=== PATIENT | female | born 1990 | race Caucasian/White ===

== ENCOUNTER 2018-10-15 21:46 | Inpatient (IN) | payer MEDICAID ==
[2018-10-15] MEDS ORDERED: OLANZapine 5 MG TAB PO ONE (22:03)
--- NOTE | 2018-10-15 22:03 | EDPHY ---
H & P Stated Complaint: Hearing voices, increasing paranoia, MH check, Source: Patient - Personal History LMP (Females 10-55): Irregular Current Tetanus Diphtheria and Acellular Pertussis (TDAP): No - Medical/Surgical History Hx Asthma: No Hx Chronic Respiratory Disease: No Hx Diabetes: No Hx Cardiac Disease: No Hx Renal Disease: No Hx Cirrhosis: No Hx Alcoholism: No Hx HIV/AIDS: No Hx Splenectomy or Spleen Trauma: No Other PMH: Depression, ADD, PTSD - Social History Smoking Status: Heavy smoker Time Seen by Provider: 10/15/18 22:03 HPI/ROS: HPI CHIEF COMPLAINT: Paranoia HISTORY OF PRESENT ILLNESS: Patient is a 28-year-old female she has a history of PTSD, major depressive disorder, attention deficit hyperactivity disorder, presents emergency room stating that she is feeling very paranoid she reports to me she just recently moved and her neighbors are talking about her already. She reports she had moved from her residence in [place] after her neighbors were constantly talking about her. She states she could hear them talking through the robbins. She arrives to the emergency room calm and cooperative. Boyfriend dropped her off. She does states she feels paranoid she believes her neighbors are talking about her. Past Medical History: History of PTSD, major depressive disorder, attention deficit hyperactivity disorder Past Surgical History: No recent surgical history Social History: Current use of tobacco, denies illicit drugs or alcohol. Family History: Noncontributory ROS REVIEW OF SYSTEMS: 10 Systems were reviewed and negative with the exception of the elements mentioned in the history of present illness. Exam Constitutional triage nursing summary reviewed, vital signs reviewed, awake/ alert. Eyes normal conjunctivae and sclera, EOMI, PERRLA. HENT normal inspection, atraumatic, moist mucus membranes, no epistaxis, neck supple/ no meningismus, no raccoon eyes. Respiratory clear to auscultation bilaterally, normal breath sounds, no respiratory distress, no wheezing. Cardiovascular rate normal, regular rhythm, no murmur, no edema, distal pulses normal. Gastrointestinal soft, non-tender, no rebound, no guarding, normal bowel sounds, no distension, no pulsatile mass. Genitourinary no CVA tenderness. Musculoskeletal no midline vertebral tenderness, full range of motion, no calf swelling, no tenderness of extremities, no meningismus, good pulses, neurovascularly intact. Skin pink, warm, & dry, no rash, skin atraumatic. Neurologic awake, alert and oriented x 3, AAOx3, moves all 4 extremities equally, motor intact, sensory intact, CN II-XII intact, normal cerebellar, normal vision, normal speech. Psychiatric paranoid Heme/Lymph/Immune no lymphadenopathy. Differential Diagnosis: Includes but is not limited to in a particular order underlying mood disorder, bipolar disorder, psychosis, schizophrenia, paranoia, drug intoxication Medical Decision Making: Plan for this patient Zyprexa 10 mg p.o., basic labs, will need medical clearance and then mental health evaluation. Re-evaluation: 2257: patient placed on m1 hold by myself. Patient has been seen evaluated by mental health. Plan for inpatient psychiatric hospitalization due to paranoia 0700AM: Patient signed over to Dr. Jaramillo. Plan for psychiatric admission. ( Rohit Alexandra) Constitutional: Initial Vital Signs Temperature (C) 36.8 C 10/15/18 21:47 Heart Rate 96 10/15/18 21:47 Respiratory Rate 17 10/15/18 21:47 Blood Pressure 125/79 H 10/15/18 21:47 O2 Sat (%) 99 10/15/18 21:47 O2 Delivery Mode Room Air Allergies/Adverse Reactions: No Known Allergies Allergy (Unverified 10/15/18 21:52) Home Medications: Medication Instructions Recorded Abilify 10/15/18 Adderall Xr 10 mg Capsule 10/15/18 CLONAZEPAM 10/15/18 Cymbalta 10/15/18 Remeron 10/15/18 Medical Decision Making ED Course/Re-evaluation: 7:00 a.m.-I assumed care of this patient at shift change. She presents with paranoia and is on an M1 hold. She has been seen by mental health and they are looking for inpatient mental health placement. 11:00 a.m.-[facility]ed [facility] by Dr. Payne. EMTALA completed. (Kely Jaramillo) Differential Diagnosis: Differential diagnosis includes though it is not limited to suicidal ideation, overdose, acute psychosis, self-injury, alcohol withdrawal. (Kely Jaramillo) - Data Points Laboratory Results: Laboratory Results 10/15/18 22:37 10/15/18 22:37 10/15/18 22:37 Beta HCG, Qual NEGATIVE Medications Given: Discontinued Medications Olanzapine (Olanzapine) 10 mg PO ONCE ONE Stop: 10/15/18 22:04 Last Admin: 10/15/18 22:29 Dose: 10 mg Departure - Departure Disposition: [facility] IP Clinical Impression: Acute psychosis Condition: Fair Referrals: NONE *PRIMARY CARE P,. [Primary Care Provider] - As per Instructions
[2018-10-15 22:55] LABS: PLATELET COUNT 234 10^3/uL (150-400)
--- NOTE | 2018-10-16 00:28 | ASMTTCLDSP ---
TLC Discharge Disposition Disposition: Answers: Admit Disposition Notes: Notes: In consultation with [facility] ED Physician Rohit Alexandra MD, , PA and on-call Psychiatrist, Soila Payne all concurred that pt appears to meet 27-65 criteria requiring psychiatric hospitalization as pt appears to be at risk of harm to self/gravely disabled due to a mental illness condition. Pt was read the Patient Rights and Responsibilities Statement on 10/16/18 at 12:05am, original placed on chart, and was given photocopy of Rights. Pt (signed the Patient Rights. Pt was given the 3N prohibited belongings list while in the ED. Discharge Concerns/Recommendations: Notes: Pt, bf and therapist agree to inpt admission benefit. Was patient given the Answers: Yes Inpatient Behavioral Health Prohibited Belongings List while in the ED? For inpatient Soila Payne MD admission, the following psychiatrist agreed to accept patient for admission to Behavioral Health ([facility]): Type of Hold: Answers: M1/72-hour Hold Hold initiated by: Answers: ED Physician Date Signed: 10/16/2018 12:27 AM Electronically Signed By:Lexis Perez
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
[2018-10-16] MEDS ORDERED: NICOTINE 21 MG/24 HR PATCH TD ONE (11:07)
[2018-10-16] MEDS ORDERED: LORazepam 0.5 MG TAB PO PRN (12:52)
[2018-10-16] MEDS ORDERED: MAGNESIUM HYDROXIDE 30 ML UDCUP PO PRN (12:52)
[2018-10-16] MEDS ORDERED: MAG HYDROX/AL HYDROX/SIMETH 30 ML UDCUP PO PRN (12:52)
[2018-10-16] MEDS ORDERED: ACETAMINOPHEN 325 MG TAB PO PRN (12:52)
[2018-10-16] MEDS ORDERED: NICOTINE POLACRILEX 2 MG GUM B PRN (12:52)
[2018-10-16] MEDS ORDERED: clonazePAM 0.5 MG TAB PO PRN (14:38)
[2018-10-16] MEDS ORDERED: clonazePAM 0.5 MG TAB PO SCH (14:45)
[2018-10-16] MEDS: clonazePAM 0.5 MG TAB PO SCH ×2 (16:13→20:10)
[2018-10-16] MEDS: NICOTINE 21 MG/24 HR PATCH TD SCH (18:17)
[2018-10-16] MEDS ORDERED: MIRTAZAPINE 30 MG TAB PO SCH (21:00)
[2018-10-16] MEDS ORDERED: DULoxetine 60 MG CAP PO SCH (21:00)
[2018-10-17] MEDS: clonazePAM 0.5 MG TAB PO SCH ×4 (06:16→19:22)
[2018-10-17] MEDS: NICOTINE 21 MG/24 HR PATCH TD SCH (08:54)
[2018-10-17] MEDS: DULoxetine 60 MG CAP PO SCH (08:54)
[2018-10-17] MEDS ORDERED: ARIPiprazole 2 MG TAB PO SCH (09:00)
[2018-10-17] MEDS ORDERED: PNEUMOCOCCAL 0.5ML VACCINE VIAL (PNEUMOVAX 23) IM ONE (11:59)
--- NOTE | 2018-10-17 12:25 | BAPA ---
[f rep st] ADMISSION PSYCHIATRIC ASSESSMENT DATE OF SERVICE: 10/17/2018 CHIEF COMPLAINT: "I'm here because my therapist wanted me to come here because I cannot get anything done because someone that lives above me is always, always insulting me." HISTORY OF PRESENT ILLNESS: From the ED note dated 10/15/2018, the patient presented to the emergency department stating she felt very paranoid, reported to the manpower development advisor she felt that when she recently moved, that her neighbors were talking about her. The patient reports that the residence she moved from in [place], neighbors were also talking about her. The patient reported she could hear the neighbors talking through the robbins. The patient was calm and cooperative in the emergency room and she was dropped off at the emergency room by her boyfriend. The patient's chief complaint in the emergency room is she felt paranoid and believed her neighbors were talking about her. From the [facility] evaluation dated 10/15/2018, the patient was placed on a 72-hour M1 hold with start date and time of 10/15/2018, at 10:33 p.m. The patient reported to the [facility] manpower development advisor "the reason I am here is we moved into an apartment. It has been about 2 weeks. I heard my neighbor talking. I felt the neighbors were talking about me. This was happening at our last apartment too, which is why we moved out and broke our lease, which was very expensive. My boyfriend doesn't believe me, but I know it is happening." The patient reportedly has a history of PTSD, major depression and attention deficit hyperactivity disorder. The patient reports to this HYDROELECTRIC PLANT ELECTRICAL ENGINEER that the neighbor above her is talking to people about her and starting rumors that she is growing or selling hard drugs. The patient reports she can hear the neighbor saying things about her, such as "gross, she doesn't know how to take care of her hygiene." The patient reports an extreme amount of stress due to being insulted and watched by her neighbors, being watched by people walking by on the dog path next to her apartment and then texting about her. The patient describes this experience as the "Cornelio Show," and reports her boyfriend does not believe her. The patient reports no use of alcohol or other substances that may have contributed to current hospitalizations. The patient describes no psychiatric symptoms at this time and reports that her medications, including doses, are where she wants them and reports good response from current medications. The patient describes history of depression including depressed mood most days all day, isolating, poor appetite, hypersomnia, fatigue, feelings of worthlessness, indecisiveness early every day, and history of suicidal ideation. The patient describes history of anxiety symptoms, including excessive worry. Reports she finds it difficult to control her worry and is easily keyed up, on edge, restless, has difficulty concentrating, her mind going blank, is irritable, muscle tension and sleep disturbance. The patient denies other psychiatric symptoms, including symptoms of karen, attention deficit hyperactivity disorder, OCD, psychosis, and any other symptom of a psychiatric disorder. PAST PSYCHIATRIC HISTORY: The patient reports history of being diagnosed with major depression, ADD, and PTSD. The patient reports she has also been diagnosed in the past with borderline personality disorder. The patient reports a history of one prior suicide attempt approximately 1 year ago, when she cut her wrist and put a plastic bag over her head. The patient reports the suicide attempt was aborted. The patient reports a history of cutting and reports a history of chronic ongoing suicidal thoughts. The patient denies any current intent or plan. The patient reports a history of being hospitalized at [facility] about 1 year ago. The patient reports she was hospitalized for withdrawal from alcohol. [facility] evaluation reports the patient was hospitalized at [facility] 1 year ago following a suicide attempt. The patient denies this report. The patient reports a history of trying numerous psychotropic medications and reports her current medications and doses are working well for her symptoms. The patient currently has a therapist, Amanda Gallegos, and psychiatrist, Dr. Cookie Lawler, from [facility]. The patient reports she plans to see a private psychiatrist in [place], as the commute to her current therapist is too long. The patient reports she is currently seeking a primary care provider. ALLERGIES: No known allergies. CURRENT MEDICATIONS: 1. Tylenol 650 mg p.o. q.4 hours p.r.n. 2. Abilify 2 mg p.o. daily. 3. Klonopin 0.5 mg p.o. four times a daily. 4. Cymbalta 60 mg p.o. daily. 5. Cymbalta 60 mg p.o. daily at 1600. 6. Maalox syrup 30 mL p.o. q.6 hours p.r.n. 7. Milk of magnesia 30 mL p.o. daily p.r.n. 8. Remeron 30 mg p.o. at bedtime. 9. Nicoderm 21 mg transdermal daily. PAST MEDICAL HISTORY: The patient reports a history of endometriosis, history of tubal ligation, history of having her wisdom teeth removed and history of appendectomy. SOCIAL HISTORY: The patient reports she was born in [place], and raised in [place] the majority of her life by both parents. The patient states she currently lives in [place], [place] with her boyfriend of 7 years. The patient describes meeting all of her developmental milestones. Reports no history of learning delays or difficulties, and describes her sexual orientation as bisexual. The patient reports she is currently in a relationship with her boyfriend and has been in the relationship for 7 years. The patient reports no history of being and has no children. The patient reports she currently has part-time employment. The patient reports highest level of education as a bachelor's degree. Reports no history of duty. Reports alevism or spiritual practice as Wicca. The patient reports no legal history. SUBSTANCE USE HISTORY: Patient reports she does not use alcohol, is currently trying to "cut back" on cigarette smoking and reports she smokes cigarettes 1-2 a day. The patient reports she currently uses marijuana in edible form and reports she only uses marijuana on the weekends. The patient reports no other substance abuse history. SUBSTANCE ABUSE BRIEF INTERVENTION: Brief intervention regarding the risks of cannabis and nicotine abuse is provided to patient with goal to reduce the risk of harm that could result from the continued use of cannabis and nicotine, with the general aim to investigate the problem, raise awareness of problem, develop a solution with the patient, recommend a specific change or activity, and motivate the patient toward change. Assess substance abuse behavior and give supportive advice about harm reduction, recommend a reduction in hazardous/at- risk consumption patterns, and facilitate referrals for additional specialized treatment with professional healthcare representative. Intermediate goal is for the patient to quit and attend outpatient substance abuse treatment. Intervention focus on intermediate goals to allow for more immediate success in the treatment process to keep the patient motivated. Review following with patient: Cannabis use risks: Short-term use: impaired short-term memory, impaired motor coordination, altered judgement, in high doses paranoia and psychosis. Long-term use addiction, diminished life satisfaction and achievement, symptoms of chronic bronchitis, and increased risk of chronic psychosis disorders if predisposition to such disorders. In withdrawal anger, aggression irritability, anxiety and nervousness, decreased appetite or weight loss, restlessness, and sleep difficulties with strange dreams. Nicotine dependence: lung cancer, other cancers, heart and circulatory system problems, diabetes, eye problems, infertility and impotence, more prone to respiratory infections, weakened senses , teeth and gum disease, premature aging, second hand smoke. Withdrawal symptoms include strong cravings, anxiety, irritability, restlessness, difficulty concentrating, depressed mood, frustration, anger, increased hunger, insomnia, and constipation or diarrhea. OUTPATIENT SUBSTANCE ABUSE TREATMENT: Patient referred to outpatient provider and treatment for continued treatment related to substance abuse. FAMILY PSYCHIATRIC HISTORY: The patient reports family history of mental illness as mother with depression and anxiety, brother with anxiety, family history of suicide as younger sister attempted suicide. The patient reports alcohol abuse on both sides of her family. ADMISSION LABS AND STUDIES: 1. CBC within normal limits. 2. BMP within normal limits. 3. Hemoglobin A1c within normal limits at 5.2. 4. Liver function within normal limits, except alkaline phosphatase is low at 36. 5. Lipid panel within normal limits. 6. Beta HCG qualitative test negative. 7. Toxicology screen is non-negative for amphetamines, the patient reports she takes a stimulant to treat attention deficit hyperactivity disorder; non- negative for benzodiazepines, patient currently has a prescription of Klonopin; and non-negative for THC, the patient reports using THC edibles on the weekends. MENTAL STATUS EXAM: The patient is a well-nourished female looking stated chronological age. Attire is appropriate. Dress is casual. Grooming status is appropriate. Ambulation is independent. Gait is normal and coordinated. Posture is normal and relaxed. Eye contact is appropriate and adequate. Motor activity is appropriate with purposeful, organized, coordinated movements with no involuntary movements noted. Attitude is cooperative and friendly. The patient appears attentive and relates well to this interviewer. Language production is spontaneous. Rate, rhythm and volume are normal. Articulation is clear. The patient reports mood as "anxious" with congruent affect. The patient's thought process is linear and logical with no loose associations, tangential thought, thought blocking, concrete thinking, or any other signs of formal thought disorder. The patient does not report suicidal or homicidal thoughts, ideas, or plans. Patient denies auditory or visual hallucinations. Patient denies delusions. Patient does not appear to be attending to internal stimuli. The patient is oriented to person, place, time, and situation. The patient's attention and concentration are fair. Patient's insight and judgment are poor. There is no evidence of gross cognitive dysfunction at any point during the interview and no evidence of apparent dysfunction in recent or remote memory noted. The patient does not report undesirable side effects from the current medications. DIAGNOSES: Based on the patient's history and current presentation, the patient 's diagnoses are: 1. Major depressive disorder, recurrent, severe, with anxious distress. 2. Posttraumatic stress disorder. 3. Cannabis use disorder, mild. 4. Nicotine dependence. 5. Rule out delusional disorder. 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 The patient requires continued inpatient care because of current psychosis, notably paranoid delusions. The patient presents with problems of ongoing paranoid delusions that have been reported by her boyfriend. Patient denies her thoughts and behavior as paranoid and denies delusions. The patient has a reported psych history of depression, anxiety, PTSD, and reports her current medications treat her symptoms. The patient denies that her thoughts are paranoid. Response to current medications for her paranoid delusions is poor. The patient is a high safety risk due to current paranoid delusions. Protective factors while hospitalized include ongoing safety checks, active involvement in treatment and support from our treatment team. Patient could benefit from inpatient hospitalization for safety, crisis stabilization, and medication evaluation. PLAN: 1. Medications: After reviewing options, risks and benefits with the patient, the patient agrees to continue current medications listed above. No other medication changes at this time as more time is needed to determine ongoing tolerability and efficacy. Plan is to continue to observe patient for response and side effects from medications, and ongoing monitoring and evaluation. 2. Review with patient informed consent and recommendations for psychotropic medication treatment listed below 3. Labs: no additional labs at this time 4. Therapy: continue milieu and group therapy 5. Further investigation including gathering information from patients relatives and review of past case records to inform treatment plan. 6. Safety/Wellness plan and follow-up outpatient appointments to be established prior to discharge. Next steps are for patient to meet with acute care surgeon to plan a safe discharge plan and establish outpatient services for ongoing treatment. 7. Confer with inpatient treatment team regarding treatment plan. 8. Address psychosocial stressors by meeting with professional healthcare representative to establish discharge plan including referrals for outpatient services. 9. Legal status: M1 10. Consider discharge next week if patient is in stable condition, safe, and has a safe discharge plan. 11. Substance abuse interventions: cannabis and nicotine ESTIMATED LENGTH OF STAY: 3-5 days PSYCHOTROPIC MEDICATION TREATMENT INFORMED CONSENT and RECOMMENDATIONS: Review nature of condition, diagnosis, and prognosis. Review nature and purpose of psychotropic medication treatment. Review type of psychotropic medications being ordered. Review risk and benefits of psychotropic medication treatment. Review probable length of time will need to take medications. Review risk and benefits of not undergoing psychotropic medication treatment. Review alternative treatments to psychotropic medications. Review psychotropic medications contraindications, drug-drug interactions, side effects, and importance of reporting any side effects to a psychiatric provider or nurse during inpatient hospitalization, and upon discharge to patients psychiatric outpatient provider, primary care provider, or other health home care associate. Review importance of asking a nurse, psychiatric provider, or primary care provider any questions or problems concerning the psychotropic medications. Verify patient understands the information that has been provided, and understands, accepts, and agrees to psychotropic medications. Review patients safety plan and importance of patient to communicate to staff while hospitalized if patient is ever a danger to self/others, or unable to care for self, and upon discharge, the importance for patient to contact [facility] or [facility], or go to the nearest emergency room, if patient is ever a danger to self/others, or unable to care for self. Recommend that upon discharge patient establish medication management treatment with a psychiatric provider, establishes routine therapy appointments, and follow-up with primary care provider. Verify patient understands and agrees to these recommendations. /[id number]/MODL MTDD
--- NOTE | 2018-10-17 14:01 | GCON ---
[f rep st] CONSULTATION INTERNAL MEDICINE CONSULTATION DATE OF CONSULTATION: 10/17/2018 REFERRING PHYSICIAN: Marko Almonte NP REASON FOR CONSULTATION: Medical opinion regarding stability for inpatient psychiatric hospitalizati on. HISTORY: The patient, a 28-year-old female, who was hearing voices and having increased paranoid beh avior. She was brought to the emergency room by her boyfriend. She was living in [place] but moved to a new apartment because she thought she heard voices, and the neighbors were talking about her. Since arriving to the new apartment, she thinks the new neighbors are also talking about her, and she is getting increasingly more paranoid. She tells me, since arrival to the behavioral health unit, s he has not heard any voices; therefore, she believes the voices from the neighbor she was hearing in her apartment were real. From the medical standpoint, she recently got over a sinus infection but feels she is on the mend. S he was taking minocycline for acne but ran out of her prescription and would like that to be refilled . She has a history of endometriosis and takes oral contraceptives, which she needs to resume. She has had ADHD and has been on Adderall for 10 years, which they are not allowing her to have here in [facility], which she is unhappy about. PAST MEDICAL HISTORY: 1. Endometriosis. 2. Acne. 3. Posttraumatic stress disorder and depression. 4. ADHD. PAST SURGICAL HISTORY: Tubal ligation, tonsillectomy, appendectomy, wisdom teeth. MEDICATIONS: Please see computerized record for full detailed list. ALLERGIES: No known drug allergies. SOCIAL HISTORY: She smokes half a pack per day but she is trying to cut back. She smokes marijuana. She has been a daily marijuana user in the past, but she has also been cutting back on that. She d escribes herself as a recovering alcoholic and does not currently drink anything at all. She lives w ith her boyfriend. She is employed. REVIEW OF SYSTEMS: Complete review of systems obtained. Review of systems negative regarding consti tutional, HEENT, GI, pulmonary, cardiovascular, , hematology, endocrine, psych, except for positive s and negatives as in HPI. FAMILY HISTORY: Reviewed and noncontributory to presenting complaint. PHYSICAL EXAMINATION: GENERAL: Well-developed, well-nourished female, in no acute distress. VITAL SIGNS: Temperature 36.5, pulse 81, blood pressure 125/65, saturating 99% on room air. EYES: Normal conjunctivae. Pupils equal, round, reactive to light. ENT: Normal ears and nose. Hearing intact. Normal teeth. Oropharynx moist. NECK: Trachea midline. No thyromegaly. CHEST: Normal effort. LUNGS: Clear to auscultation bilaterally. CARDIOVASCULAR: Regular rate and rhythm with no murmur an d no lower extremity edema. ABDOMEN: Soft, nontender. No hepatosplenomegaly. SKIN: Warm, dry, in tact without rash. MUSCULOSKELETAL: No cyanosis or clubbing. Strength is 5/5 upper and lower extre mities. NEUROLOGIC: Cranial nerves intact. Normal sensation to light touch. PSYCH ASSESSMENT: Al ert and oriented x3. Normal affect. Normal judgment. Normal memory. LABORATORY DATA: White count 7.68, hematocrit 39.1, platelets 234. Sodium 135, potassium 4.1, chlor loretta 100, bicarb 29, BUN 11, creatinine 0.7, glucose 82. Hemoglobin A1c is 5.2. LFTs are negative. LDL of 86. ASSESSMENT/PLAN: 1. Paranoia and hearing voices. Management per Psychiatry. 2. Endometriosis. I will resume her oral contraceptives. It is okay for her to take her pills from home, which she has in her possession. 3. Tobacco dependence. She is on a nicotine patch. 4. Attention deficit hyperactivity disorder. Her Adderall is being held under the direction of the psychiatric team. 5. Acne. I recommended she establish care with a new primary care doctor and/or medical assisting program director to ge t this prescribed as an outpatient, but I would not start minocycline during this psychiatric stay. Thank you very much for this consultation. Please re-consult Hospitalist Medicine anything further c pallavi up. /[id number]/MODL
--- NOTE | 2018-10-17 14:37 | ASMTBHMTP ---
Master Treatment Plan Master Treatment Plan Answers: Impaired Reality for: Date: 10/17/2018 Diagnosis on Admission: Major Depressive Disorder, recurrent, with psychotic features 296.34 (F33.3) Expected length of stay: 3-5 Reason for admission: Notes: The patient reported that she has been living in an apartment in [place], [place]. She vacated this apartment and moved to another complex in [place], [place] with her boyfriend due to hearing neighbors "complain" about her. The patient reported that they complain about her "smoking cigarettes" and generally "bitch" about her "spreading gossip" to other neighbors. The patient stated, "We can't relate to each other. The difference is, they have friends and I don't. They say I am gross, a threat to children, and a public health concern. My hearing is sharp." The patient reported that she learned of a "neighborhood watch group that consists of over 1,000 members;" this group discusses the patient as well. She stated, "They have the wrong idea about who I am." The patient reported that her boyfriend and therapist recommended she come here to learn whether she was "imagining" the experience. The patient recently began wearing noise canceling headphones without success. Patient's stated presenting problems: Notes: The patient reported that she was recently at dinner in [place] with peers from [employer] and heard voices stating "Why is she with them? I thought we got rid of her. We shouldn't have to deal with her." The patient also recalled being followed on multiple occasions and seeing the "same vehicles and license plates." The patient is in remission from etoh abuse; relapsed one year ago. The patient currently uses thc; frequency, duration, intensity unknown. The patient reported decreased use. Patient's goals for treatment: Notes: The patient stated, "I needed a break. 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 Discharge criteria: Notes: Psychotic symptoms will be reduced or eliminated with return to baseline functioning in affect, thinking, and behavior prior to discharge. Initial disposition plan/considerations: Notes: The patient will return to her apartment, routine, and follow up care. Master Treatment Plan Required Signatures Psychiatrist signature: Answers: DONALD DiazP: RN on-shift signature: Answers: RN: Patient signature: Answers: Patient: Date Signed: 10/17/2018 02:31 PM Electronically Signed By:Catherine Abdi
--- NOTE | 2018-10-17 14:41 | PDMN ---
Medical Necessity Medical necessity: Pt meets IP criteria per IT SECURITY CONSULTING DIRECTOR & [facility] [id number]; est los >2 mn for eval/tx of major depressive disorder, recurrent, severe w/anxious distress; r/o delusional disorder; pt on M1 hold; admit for further monitoring, safety, crisis stabilization & med management; per H&P & order 10/16/18
[2018-10-17] MEDS ORDERED: DULoxetine 60 MG CAP PO SCH (16:00)
[2018-10-17] MEDS: LORYNA PO SCH (19:43)
[2018-10-17] MEDS ORDERED: MIRTAZAPINE 30 MG TAB PO SCH (21:00)
[2018-10-18] MEDS: clonazePAM 0.5 MG TAB PO SCH ×2 (06:23→12:25)
[2018-10-18 06:51] VITALS: BP 114/57
[2018-10-18] MEDS: DULoxetine 60 MG CAP PO SCH (08:47)
[2018-10-18] MEDS: LORYNA PO SCH (08:47)
[2018-10-18] MEDS: NICOTINE 21 MG/24 HR PATCH TD SCH (08:48)
[2018-10-18] MEDS ORDERED: ARIPiprazole 2 MG TAB PO SCH (09:00)
[2018-10-18] MEDS ORDERED: CHOLECALCIFEROL VIT D3 1,000 UNITS TAB PO SCH (09:00)
[2018-10-18] MEDS ORDERED: OMEGA-3 FATTY ACIDS 1,000 MG CAP PO SCH (09:00)
--- NOTE | 2018-10-18 12:53 | BDS ---
[f rep st] BEHAVIORAL HEALTH DISCHARGE SUMMARY REASON FOR ADMISSION: From the ED note dated 10/15/2018, patient with history of PTSD, major depressive disorder presented to the emergency room feeling very paranoid. The patient was admitted involuntarily and on an M1 hold due to being gravely disabled due to a mental illness. Patient was admitted for safety , crisis stabilization, and medication management. ADMITTING DIAGNOSES: 1. Major depressive disorder, recurrent episode, severe, with anxious distress. 2. Posttraumatic stress disorder. 3. Cannabis use disorder, moderate dependence. 4. Nicotine dependence. 5. Cannabis-induced psychotic disorder with delusions, suspected. 6. Delusional disorder, suspected. ADMISSION PHYSICAL EXAM: Patient was seen on 10/17/2018 for history and physical consultation for medical clearance for inpatient psychiatric hospitalization and treatment. Patient was medically cleared for inpatient psychiatric hospitalization and treatment. For further details, please refer to consultation note dated 10/17/2018. ADMISSION LABS: 1. CBC within normal limits. 2. BMP within normal limits. 3. Hemoglobin A1c within normal limits at 5.2. 4. Liver function within normal limits except alkaline phosphatase was low at 36. 5. Lipid panel within normal limits. 6. Beta HCG qualitative test negative. 7. Toxicology screen non-negative for amphetamines, non-negative for benzodiazepines and non-negative for THC. Negative for all other substances that were screen. Negative for ethyl alcohol. MAJOR PROCEDURES OR TESTS: None. HOSPITAL COURSE: The most prominent symptoms and behaviors while the patient was here were reports of severe anxiety and depression. Treatment modalities utilized were milieu and group therapy. Remeron 30 mg p.o. q.h.s. was continued to target mood symptoms, was tolerated with no report of side effects and with good response. Cymbalta 60 mg p.o. b.i.d. was continued to target mood symptoms, was tolerated with no report of side effects and with good response. Klonopin 0.5 mg q.i.d. to target anxiety symptoms, was tolerated with no report of side effects and with good response. Abilify 2 mg was continued to target mood symptoms, was tolerated with no report of side effects and with good response. Patient has improved considerably with no signs of psychiatric symptoms and no psychiatric symptoms expressed. Patient reports she has improved since admission, states to be in stable condition, feels safe to discharge, and she contracts for safety. Patients response to treatment was good. There were no adverse or unexpected results of treatment. The patient was safe throughout stay, active in treatment, engaged in groups, and was appropriate with staff. Patient met with treatment team prior to discharge to assess readiness to discharge and review discharge plan. The treatment team consensus is the patient in stable condition, has a safe discharge plan, and is ready to discharge today. CONDITION AT DISCHARGE: Patient is in stable condition and is no longer a danger to self or others, and is not gravely disabled due to mental illness. Patient is no longer in need of inpatient level of care, and can be safely and effectively treated within the community. The patients level of risk at time of discharge is low. MSE: The patient is casually dressed and with good hygiene , and looks stated age. Patient is sitting, posture is upright, and position is relaxed. Patient appears awake, alert, and responds appropriately and reasonably during interview. Patient is engaged, relates well to interviewer, and emotional facial expression is appropriate to situation and changes appropriately with topic. Patient is cooperative, makes comfortable eye contact , and movements are voluntary, deliberate, coordinated, and smooth and even with no inappropriate movements. Patient makes laryngeal sounds effortlessly and shares conversation appropriately; pace of conversation is appropriate, and stream of talking is fluent; articulation is clear and understandable; word choice is effortless and appropriate for education level; completes sentences, occasionally pausing to think; rate and volume are appropriate for interview and setting. Patient reports mood as euthymic. Patients affect is stable with full variable range, congruent with mood, and appropriate to speech and circumstances. Patient has linear and logical thinking, with no loose associations, tangential thought, thought blocking, concrete thinking, or any other signs of formal thought disorder. Patient denies suicidal and homicidal ideation, and denies hallucinations and delusions. Patient appears to be a reliable historian with sound judgement and good insight into current condition. Patient has no apparent dysfunction in recent or remote memory noted , and no evidence of gross cognitive dysfunction noted at any point during the interview. DISCHARGE DIAGNOSES: 1. Major depressive disorder, recurrent episode, severe, with anxious distress. 2. Posttraumatic stress disorder. 3. Cannabis use disorder, moderate dependence. 4. Nicotine dependence. 5. Cannabis-induced psychotic disorder with delusions, suspected. (rule-out) 6. Delusional disorder, suspected. (rule-out) CURRENT MEDICATIONS: After reviewing options, risks, and benefits with the patient, the patient agrees to continue: 1. Remeron 30 mg p.o. q.h.s. 2. Cymbalta 60 mg p.o. b.i.d. 3. Klonopin 1 mg p.o. b.i.d. daily p.r.n. 4. Abilify 2 mg p.o. daily. 5. [place]-3 fatty acids 1000 mg p.o. daily. 6. Vitamin D3 1000 units p.o. daily. 7. Loryna 3 mg, 0.02 mg tablet 1 each p.o. daily. The patient reports she has prescriptions for these medications and and requests no prescriptions at time of discharge. Prescriptions and medications are reviewed with the patient at time of discharge to ensure accuracy and patient understanding. DISPOSITION: Patient left hospital independently and voluntarily with her boyfriend and plans to return home with her boyfriend. FOLLOW UP: video coordinator reports the appropriate outpatient follow-up services have been established and outpatient appointments have been scheduled. The patient received written instructions with times and dates of outpatient follow-up appointments. The following follow-up recommendations were provided to the patient at discharge: Continue psychotropic medications as prescribed and attend appointments as scheduled. Report any side effects to a psychiatric outpatient provider, a primary care provider, or other health clinical manager home care. Address any questions or problems concerning the psychotropic medications with a psychiatric outpatient provider, a primary care provider, or other health clinical manager home care. Contact [facility] or [facility], or go to the nearest emergency room, if you are ever a danger to yourself/others, or unable to care for yourself. As soon as possible, establish a routine medication management treatment with a psychiatric provider, establish routine therapy appointments, and follow-up with a primary care provider. SUBSTANCE ABUSE BRIEF INTERVENTION: Brief intervention regarding the risks of cannabis and nicotine abuse is provided to patient with goal to reduce the risk of harm that could result from the continued use of cannabis and nicotine, with the general aim to investigate the problem, raise awareness of problem, develop a solution with the patient, recommend a specific change or activity, and motivate the patient toward change. Assess substance abuse behavior and give supportive advice about harm reduction, recommend a reduction in hazardous/at- risk consumption patterns, and facilitate referrals for additional specialized treatment with progressive care unit registered nurse. Intermediate goal is for the patient to quit and attend outpatient treatment. Intervention focus on intermediate goals to allow for more immediate success in the treatment process to keep the patient motivated. Review following with patient: Cannabis use risks: Short-term use: impaired short-term memory, impaired motor coordination, altered judgement, in high doses paranoia and psychosis. Long-term use addiction, diminished life satisfaction and achievement, symptoms of chronic bronchitis, and increased risk of chronic psychosis disorders if predisposition to such disorders. In withdrawal anger, aggression irritability, anxiety and nervousness, decreased appetite or weight loss, restlessness, and sleep difficulties with strange dreams. Nicotine dependence: lung cancer, other cancers, heart and circulatory system problems, diabetes, eye problems, infertility and impotence, more prone to respiratory infections, weakened senses, teeth and gum disease, premature aging, second hand smoke. Withdrawal symptoms include strong cravings, anxiety , irritability, restlessness, difficulty concentrating, depressed mood, frustration, anger, increased hunger, insomnia, and constipation or diarrhea. OUTPATIENT SUBSTANCE ABUSE TREATMENT: Patient referred to outpatient provider and treatment for continued treatment related to substance abuse. LEGAL COURSE: Patient was admitted on an M1 hold for involuntary inpatient psychiatric hospitalization and treatment. The patient discharged today independently and voluntarily. ATTITUDE AT TIME OF DISCHARGE: The patients attitude was positive at time of discharge, and patient reports looking forward to discharging today. The patient reports she feels safe to discharge, is no longer a danger to herself or others, is in stable condition, and contracts for safety. Patient states she will continue medications as prescribed, and establish medication management treatment with an outpatient provider after discharge. Patient reports she understands the information that has been provided to her, and she understands, accepts, and agrees to psychotropic medications. Patient describes internal protective factors as the coping skills she has learned while hospitalized here, and she plans to continue to practice these coping skills after discharge. LABS AND RADIOLOGY STUDIES: There were no pending labs or studies at time of discharge. ADVANCE DIRECTIVE: There was no advance directive on file, and patient was full code during this hospitalization. The following psychotropic medication treatment informed consent and recommendations were provided to the patient at time of discharge. Patient reports she understands, accepts, and agrees to the information that has been provided. PSYCHOTROPIC MEDICATION TREATMENT INFORMED CONSENT and RECOMMENDATIONS: Review nature of condition, diagnosis, and prognosis. Review nature and purpose of psychotropic medication treatment. Review type of psychotropic medications being prescribed. Review risk and benefits of psychotropic medication treatment. Review probable length of time will need to take medications. Review risk and benefits of not undergoing psychotropic medication treatment. Review alternative treatments to psychotropic medications. Review psychotropic medications contraindications, side effects, and importance of reporting any side effects to a psychiatric provider, primary care provider, or other health clinical manager home care. Review importance of her asking a psychiatric provider or primary care provider any questions or problems concerning the psychotropic medications. Review importance of reporting to a psychiatric provider, primary care provider, or other health clinical manager home care if she plans to or becomes . Review safety plan and the importance to contact [facility] or [facility] , or go to the nearest emergency room, if ever a danger to yourself/others, or unable to care for yourself. Recommend upon discharge to establish routine medication management treatment with a psychiatric provider, establish routine therapy appointments, and follow-up with a primary care provider. Verify patient understands, accepts, and agrees to the information that has been provided. /[id number]/MODL MTDD
--- NOTE | 2018-10-18 15:28 | ASMTCMCOM ---
CM Note CM Note Notes: The patient participated in clinical treatment team rounds. She was engaged and appropriate; presented as paranoid. The patient stated, "Everytime I hear someone talking I think it is about me." "I'm like a creepy person who creeps." The patient explained that she has not heard anyone talking about her since her hospital admission therefore she believes that she is not imagining the voices at home and in the community. The patient endorsed thc use; frequency, intensity, duration unknown. The patient reportedly uses thc ,most commonly edible form, although she reported decreased use recently. Date Signed: 10/18/2018 03:26 PM Electronically Signed By:Catherine Abdi
== END 2018-10-18 13:30 | disposition home or self-care (01) | DRG 751 ==
LOC: BBEH 10-16 12:30
PROVIDERS: ADMIT Registered Nurse; ATTEND Registered Nurse
DX: F33.3 Major depressive disorder, recurrent, severe with psychotic symptoms (principal); F12.959 Cannabis use, unspecified with psychotic disorder, unspecified; F43.10 Post-traumatic stress disorder, unspecified; F17.200 Nicotine dependence, unspecified, uncomplicated; F98.8 Other specified behavioral and emotional disorders with onset usually occurring in childhood and adolescence; L70.9 Acne, unspecified; N80.9 Endometriosis, unspecified; Z23 Encounter for immunization
CPT/HCPCS: 80305; G0009; G0480

== ENCOUNTER 2018-10-21 17:14 | Inpatient (IN) | payer MEDICAID ==
--- NOTE | 2018-10-21 18:04 | EDPHY ---
H & P Stated Complaint: here w/ concern for auditory hallucinations, denies HI/SI - Medical/Surgical History Hx Asthma: No Hx Chronic Respiratory Disease: No Hx Diabetes: No Hx Cardiac Disease: No Hx Renal Disease: No Hx Cirrhosis: No Hx Alcoholism: No Hx HIV/AIDS: No Hx Splenectomy or Spleen Trauma: No Other PMH: Depression, ADD, PTSD - Social History Smoking Status: Heavy smoker Time Seen by Provider: 10/21/18 17:47 HPI/ROS: CHIEF COMPLAINT: "These people are talking about me" HISTORY OF PRESENT ILLNESS: 28-year-old female history of major depressive disorder, PTSD, cannabis induced psychotic disorder and delusional disorder, discharged from [facility] psychiatry 3 days ago, returns to the ER with her life partner via private vehicle. In the ER voluntarily. Her boyfriend reports an increase in audio hallucinations. She reports that she believes people are following her and talking about her and that she can hear her neighbors through the robbins, something that her life partner cannot hear. She reports that her neighbors are talking about her and discussing her showering habits and lifestyle habits. Denies suicidal or homicidal ideation. REVIEW OF SYSTEMS: 10 systems reviewed and negative with the exception of the elements mentioned in the history of present illness PAST MEDICAL & SURGICAL HISTORY: Major depressive disorder. PTSD. Cannabis use disorder. Delusional disorder. SOCIAL HISTORY: Positive for cannabis and tobacco. PHYSICAL EXAM (Prior to examination, patient consented to physical exam, hands were washed and my usual and customary physical exam procedures followed) 1) GENERAL: Well-developed, well-nourished, alert and oriented. Appears 2) HEAD: Normocephalic, atraumatic 3) HEENT: Pupils equal, round, reactive to light bilaterally. Sclera anicteric. 4) NECK: Full range of motion, no meningeal signs. 5) LUNGS: Clear auscultation bilaterally, no wheezes, no rhonchi, no retractions. 6) HEART: Regular rate and rhythm, no murmur, no heave, no gallop. 7) ABDOMEN: No guarding, no rebound, no focal tenderness, negative McBurney's, negative Alfonso's, negative Rovsing's, negative peritoneal sign, 8) MUSCULOSKELETAL: Moving all extremities, no focal areas of tenderness, no obvious trauma. No peripheral edema or discoloration. 9) BACK: No CVA tenderness, no midline vertebral tenderness, no fluctuance, no step-off, no obvious trauma, no visual or palpable abnormality. 10) SKIN: No rash, no petechiae. 11) Psychiatric: Patient is oriented X 3, there is no agitation. She does look at me suspiciously, her speech is forceful and overactive. DIFFERENTIAL DIAGNOSIS: In no particular order including but limited to polysubstance abuse, psychosis, suicidal ideation, homicidal ideation (Radha,D Olga) Constitutional: Initial Vital Signs Temperature (C) 37.1 C 10/21/18 17:17 Heart Rate 106 H 10/21/18 17:17 Respiratory Rate 16 10/21/18 17:17 Blood Pressure 117/80 10/21/18 17:17 O2 Sat (%) 98 10/21/18 17:17 O2 Delivery Mode Room Air Allergies/Adverse Reactions: No Known Allergies Allergy (Verified 10/16/18 11:12) Home Medications: Medication Instructions Recorded ARIPiprazole [Abilify 2 mg (*)] 2 mg PO DAILY 10/15/18 DULoxetine [Cymbalta 60 MG (*)] 60 mg PO BID 10/15/18 Mirtazapine [Remeron] 30 mg PO HS 10/15/18 clonazePAM [klonoPIN (*)] 0.5 mg PO BID@09,13 PRN 10/15/18 [place]-3 Fatty Acids [Fish Oil 1000 1,000 mg PO DAILY 10/16/18 mg (*)] Ethinyl Estradiol/Drospirenone 1 each PO DAILY 10/17/18 [Loryna 3 mg-0.02 mg Tablet] Dextroamphetamine/Amphetamine 30 mg PO DAILY 10/21/18 [Dextroamp-Amphet ER 30 mg Cap] clonazePAM [Clonazepam] 1 mg PO HS 10/21/18 Medical Decision Making ED Course/Re-evaluation: 6:01 p.m.: Consultation with secondary supervising physician Dr. Juan Hess in the ER the patient was placed on M1 hold as I believe the patient is gravely disabled as she reports an increase in audio hallucinations which are not heard by her life partner with whom she lives. She has recent hospitalization for inpatient psychiatric reasons. I think the patient would benefit from psychiatric evaluation. (Vonda Garcia Olga) Other Provider: PHYSICIAN DOCUMENTATION: The patient was evaluated and managed by the Physician Gang Sawyer and myself. I have reviewed the chart and agree with the findings and plan of care as documented. In addition, I examined the patient myself at 1832. History confirmed as worsening delusions. Physical findings as follows: Patient is cooperative currently without medical complaints. Placed on a mental health hold at 6:10 p.m. Signed out to Juan with psychiatric evaluation pending. I am the secondary supervising physician. (Juan Hess) 22:[address] Hess pending evaluation. 22:22 patient has been accepted to [facility] by Dr. Guerra. I have completed the EMTALA. (Garrett Martinez) - Data Points Laboratory Results: Laboratory Results 10/21/18 18:30 10/21/18 18:30 10/21/18 10/21/18 10/21/18 19:10 18:30 18:30 WBC RBC Hgb Hct MCV MCH MCHC RDW Plt Count MPV Neut % (Auto) Lymph % (Auto) [place] % (Auto) Eos % (Auto) Baso % (Auto) Nucleat RBC Rel Count Absolute Neuts (auto) Absolute Lymphs (auto) Absolute Monos (auto) Absolute Eos (auto) Absolute Basos (auto) Absolute Nucleated RBC Immature Gran % Immature Gran # Sodium 134 mEq/L L mEq/L (135-145) Potassium 3.8 mEq/L mEq/L (3.5-5.2) Chloride 99 mEq/L mEq/L (97-110) Carbon Dioxide 24 mEq/l mEq/l (22-31) Anion Gap 11 mEq/L mEq/L (6-14) BUN 12 mg/dL mg/dL (7-23) Creatinine 0.6 mg/dL mg/dL (0.6-1.0) Estimated GFR > 60 Glucose 86 mg/dL mg/dL (70-100) Calcium 10.7 mg/dL H mg/dL (8.5-10.4) Phosphorus 4.1 mg/dL mg/dL (2.5-4.5) Beta HCG, Qual NEGATIVE Salicylates < 1.0 mg/dL L mg/dL (2.0-20.0) Urine Opiates Screen NEGATIVE (NEGATIVE) Acetaminophen < 10 mcg/mL L mcg/mL (10-30) Urine Barbiturates NEGATIVE (NEGATIVE) Ur Phencyclidine Scrn NEGATIVE (NEGATIVE) Ur Amphetamine Screen NON-NEGATIVE H (NEGATIVE) U Benzodiazepines Scrn NEGATIVE (NEGATIVE) Urine Cocaine Screen NEGATIVE (NEGATIVE) U Marijuana (THC) Screen NON-NEGATIVE H (NEGATIVE) Ethyl Alcohol < 10 mg/dL mg/dL (0-10) 10/21/18 18:30 WBC 6.98 10^3/uL 10^3/uL (3.80-9.50) RBC 4.43 10^6/uL 10^6/uL (4.18-5.33) Hgb 13.0 g/dL g/dL (12.6-16.3) Hct 38.7 % % (38.0-47.0) MCV 87.4 fL fL (81.5-99.8) MCH 29.3 pg pg (27.9-34.1) MCHC 33.6 g/dL g/dL (32.4-36.7) RDW 12.5 % % (11.5-15.2) Plt Count 225 10^3/uL 10^3/uL (150-400) MPV 11.4 fL fL (8.7-11.7) Neut % (Auto) 40.1 % % (39.3-74.2) Lymph % (Auto) 48.9 % H % (15.0-45.0) [place] % (Auto) 8.0 % % (4.5-13.0) Eos % (Auto) 2.1 % % (0.6-7.6) Baso % (Auto) 0.6 % % (0.3-1.7) Nucleat RBC Rel Count 0.0 % % (0.0-0.2) Absolute Neuts (auto) 2.80 10^3/uL 10^3/uL (1.70-6.50) Absolute Lymphs (auto) 3.41 10^3/uL H 10^3/uL (1.00-3.00) Absolute Monos (auto) 0.56 10^3/uL 10^3/uL (0.30-0.80) Absolute Eos (auto) 0.15 10^3/uL 10^3/uL (0.03-0.40) Absolute Basos (auto) 0.04 10^3/uL 10^3/uL (0.02-0.10) Absolute Nucleated RBC 0.00 10^3/uL 10^3/uL (0-0.01) Immature Gran % 0.3 % % (0.0-1.1) Immature Gran # 0.02 10^3/uL 10^3/uL (0.00-0.10) Sodium Potassium Chloride Carbon Dioxide Anion Gap BUN Creatinine Estimated GFR Glucose Calcium Phosphorus Beta HCG, Qual Salicylates Urine Opiates Screen Acetaminophen Urine Barbiturates Ur Phencyclidine Scrn Ur Amphetamine Screen U Benzodiazepines Scrn Urine Cocaine Screen U Marijuana (THC) Screen Ethyl Alcohol Departure - Departure Disposition: Other Psych, Not [place] Clinical Impression: Post traumatic stress disorder, Psychosis Condition: Good Referrals: NONE *PRIMARY CARE P,. [Primary Care Provider] - As per Instructions
[2018-10-21 18:34] LABS: PLATELET COUNT 225 10^3/uL (150-400)
[2018-10-21] MEDS ORDERED: clonazePAM 1 MG TAB PO ONE (22:15)
[2018-10-21] MEDS ORDERED: MIRTAZAPINE 30 MG TAB PO ONE (22:30)
[2018-10-21] MEDS ORDERED: NICOTINE 21 MG/24 HR PATCH TD ONE ×2 (22:35→22:36)
--- NOTE | 2018-10-21 23:15 | ASMTTCLDSP ---
[facility] Discharge Disposition Disposition: Answers: Admit Discharge Concerns/Recommendations: Notes: In consultation with [facility] ED physician, Juan Hess MD and on-call psychiatrist, Koko Guerra MD, both concurred that pt appears to meet 27-65 criteria requiring psychiatric hospitalization as pt appears to be at risk of harm to self due to a mental illness condition. Pt was read the Patient Rights and Responsibilities Statement on 10/21/2018 at 22:30 original placed on chart, and was given photocopy of Rights. Pt signed to sign the Patient Rights. Pt was given the 3[facility] prohibited belongings list while in the ED. Was patient given the Answers: Yes Inpatient Behavioral Health Prohibited Belongings List while in the ED? For inpatient Koko Guerra MD admission, the following psychiatrist agreed to accept patient for admission to Behavioral Health ([facility]): Date Signed: 10/21/2018 11:14 PM Electronically Signed By:Kenya Valenzuela
[2018-10-21] MEDS ORDERED: IBUPROFEN 600 MG TAB PO ONE (23:21)
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
[2018-10-22] MEDS ORDERED: ONDANSETRON DISINTEGRATING 4 MG TAB PO ONE (00:15)
[2018-10-22] MEDS ORDERED: FAMOTIDINE 20 MG TAB PO PRN (00:42)
[2018-10-22] MEDS ORDERED: MAG HYDROX/AL HYDROX/SIMETH 30 ML UDCUP PO PRN (00:59)
[2018-10-22] MEDS ORDERED: NICOTINE POLACRILEX 2 MG GUM B PRN (00:59)
[2018-10-22] MEDS ORDERED: LORazepam 0.5 MG TAB PO PRN (00:59)
[2018-10-22] MEDS: ACETAMINOPHEN 325 MG TAB PO PRN ×3 (01:11→21:06)
--- NOTE | 2018-10-22 01:19 | GCON ---
[f rep st] CONSULTATION DATE OF CONSULTATION: 10/22/2018 SOURCE: Patient provides history, appears reliable. EMR reviewed and case discussed with the [facility] oral health coordinator. REASON FOR CONSULTATION: Medical management. HISTORY OF PRESENT ILLNESS: This is a pleasant 28-year-old female with past medical history signific ant for major depressive disorder, PTSD, and ADHD, who presents from the emergency department, [facility] days after discharge from [facility], initially with her significant other for increased aud itory hallucinations, paranoia, delusions, and history of chronic SI. The patient presents voluntari ly and denied any SI or HI upon presentation. Patient does report a medical history significant for endometriosis with chronic abdominal pain, hist ory of gastritis and upper GI discomfort, GERD, and chronic sinus issues. REVIEW OF SYSTEMS: Ten systems reviewed and otherwise negative except as noted above. ALLERGIES: No known drug allergies. HOME MEDICATIONS: See med rec in EMR. PAST MEDICAL HISTORY: Significant for major depressive disorder with psychotic features, PTSD, ADHD, history of hospitalization inpatient psychiatric facilities, chronic pelvic pain due to endometriosi s, gastritis, chronic sinus congestion, eustachian tube dysfunction, recurrent UTI. PAST SURGICAL HISTORY: Significant for wisdom tooth extraction, tonsillectomy, adenoidectomy, append ectomy, BTL, EGD. FAMILY HISTORY: Grandfather with history of alcohol dependence. SOCIAL HISTORY: Patient lives with her life partner. She denies any illicit drug use but does utili ze marijuana. She does smoke tobacco. Denies any alcohol consumption. PHYSICAL EXAM: VITALS: Blood pressure is 116/71, heart rate 73, respiratory rate 16, O2 sat 97% on room air, temperature 36.6. GENERAL: No acute distress. Young adult female is sitting up in bed dr brink, does appear fatigued, with flat affect and depressed. She is not tearful. HEAD: Normocephal ic, atraumatic. EYES: Extraocular muscles are intact. Pupils equal, round, slightly decreased reac tivity to light bilaterally but symmetric. No scleral icterus or conjunctival injection. ENT: Muco us membranes appear moist. No oropharyngeal erythema or exudates. No nasal discharge. Bilateral ea r canals nonobstructive. Tympanic membranes are clear, do not appear full or distended. NECK: Supp le. Trachea midline. CV: Regular rate and rhythm. No murmurs, rubs, or gallops appreciated. RESP IRATORY: Lungs clear to auscultation bilaterally. No wheezes, rales, or rhonchi appreciated. ABDOM EN: Soft. Patient grimaces with exam, but abdomen is soft. No rebound or guarding appreciated. Po sitive bowel sounds. No suprapubic tenderness to palpation. : No suprapubic tenderness to palpat ion. No Bridges catheter in place. MUSCULOSKELETAL: Patient moves all extremities. Sits up independ ently. Strength is grossly intact. NEURO: Grossly nonfocal. No facial drooping. Moves all extrem ities, as noted above. PSYCH: Affect is quite flat, but patient does answer questions appropriately . No current SI or HI. LABORATORY STUDIES: WBC 6.9, H and H 13.0 and 38.7, MCV 87.4, platelet count 225, lymphocyte percent 48.9, neutrophil percent 40.1, no bands. Sodium is 134, potassium 3.8, chloride 99, CO2 24, anion g ap 11, BUN 12, creatinine 0.6, GFR greater than 60, glucose 86, calcium 10.7, phosphorus 4.1. Beta H CG is negative. Salicylate level is negative. Acetaminophen level less than 10. Alcohol level less than 10. U-tox is positive for amphetamines and marijuana. The patient is dextroamphetamine and amphetamine daily. ASSESSMENT AND PLAN: 28-year-old female with history of major depressive disorder with psychotic fea tures, posttraumatic stress disorder, and attention deficit-hyperactivity disorder who presents to [facility] ED today with complaints of auditory hallucinations and depressed mood. Hospitalist service consul [facility] for medical management. 1. Gastritis. 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 e is amenable to have an antacid available p.r.n. Monitor patient's symptoms with NSAID use. 2. Chronic pelvic pain due to endometriosis. Patient is status post dose of ibuprofen in the ED. 3. Suspected chronic rhinitis with nasal congestion and eustachian tube dysfunction. Flonase and Af rin available for 3 days with continued Flonase use daily. 4. Nicotine dependence. Patient with a patch in place, continue daily p.r.n. 5. Patient has history of major depressive disorder, posttraumatic stress disorder, attention defici t-hyperactivity disorder. As per primary psychiatric team. /[id number]/MODL
[2018-10-22] MEDS: clonazePAM 0.5 MG TAB PO SCH ×4 (06:28→21:05)
[2018-10-22] MEDS: ARIPiprazole 5 MG TAB PO SCH (09:37)
[2018-10-22] MEDS: CALCIUM CARBONATE 500 MG CHEWABLE TAB PO SCH ×3 (09:37→21:05)
[2018-10-22] MEDS: NICOTINE 21 MG/24 HR PATCH TD SCH (09:37)
[2018-10-22] MEDS: DULoxetine 60 MG CAP PO SCH ×2 (09:37→21:05)
[2018-10-22] MEDS: OXYMETAZOLINE 30 ML NASAL SPRAY EACHNARE SCH ×2 (09:37→21:06)
--- NOTE | 2018-10-22 11:52 | PDMN ---
Medical Necessity Medical necessity: Pt meets IP criteria per [facility] & MCG B-001-IP; est los >2 mn for eval/tx of unspecified psychosis; pt on M1 hold due to risk of harm to self ; admit for further monitoring, safety & crisis stabilization; per order 10/22/18
--- NOTE | 2018-10-22 12:52 | BAPA ---
[f rep st] ADMISSION PSYCHIATRIC ASSESSMENT DATE OF SERVICE: 10/22/2018 CHIEF COMPLAINT: "I can't do this anymore. I am at my wits end. My boyfriend may leave me because of this". HISTORY OF PRESENT ILLNESS: From the ED note dated 10/21/2018, patient discharged from [facility] three days ago , returns to the ER with her life partner via private vehicle. The patient's boyfriend reported during the ER evaluation that the patient was having increased auditory hallucinations. Reportedly, she believed people were following her, talking about her, and she can hear her neighbors through the robbins, something her life partner reported he cannot hear. The patient reported that her neighbors are talking about her and discussing her showering habits and lifestyle habits. The patient denied suicidal or homicidal ideation. From the [facility] evaluation dated 10/21/2018, the patient was placed on a 72-hour M1 hold with start date and time of 10/21/2018 at 5:57 p.m. The patient reported to the [facility] stone polisher "my boyfriend of seven years is breaking up with me. I really, really believe someone in this building nearby is talking about me. He is breaking up with me because he does not believe me. He thinks I am hallucinating. It's so distracting. They are saying "she is so fucking stupid. She thinks she is a witch. She is creepy". The patient reports to this SCRAP HANDLER that she used marijuana Sunday and also yesterday prior to presenting to the emergency room. The patient describes similar reason for hospitalization as when the patient was hospitalized three days ago and seen for a psychiatric assessment on 10/17/2018. The patient reports after returning home she could continue to hear her neighbors talking through the robbins, talking about her hygiene and how she does not take care of herself. The patient describes as she did three days ago that this is extremely stressful for her. The patient reports continuing her medications after discharge including Remeron 30 mg p.o. at bedtime, Cymbalta 60 mg p.o. twice daily, Klonopin 0.5 mg p.o. four times daily, and Abilify 2 mg p.o. daily. The patient reports never being on a higher dose of Abilify. Reports she has been on Abilify 2 mg for several months. PAST PSYCHIATRIC HISTORY: Patient reports history of major depression, ADD and PTSD. Prior hospitalization at [facility]. The patient was diagnosed with major depressive disorder, recurrent, severe, with anxious distress, posttraumatic stress disorder, cannabis use disorder, nicotine dependence, and rule out delusional disorder. At time of discharge, patient was diagnosed with cannabis use disorder, moderate dependence, nicotine dependence, posttraumatic stress disorder; major depressive disorder, recurrent, severe, with anxious distress and rule out as cannabis induced psychotic disorder with delusions and delusional disorder suspected. The patient reports a history of one prior suicide attempt approximately one year ago when she cut her wrist and put a plastic bag over her head. The patient reports the suicide attempt was aborted. The patient does report a history of cutting and reports a history of chronic ongoing suicidal thoughts. The patient denies any current intent or plan with regard to prior hospitalizations. Patient reports a history of being hospitalized at [facility] about one year ago. The patient reports she was hospitalized for withdrawal from alcohol. The [facility] evaluation during the last admission reported that the patient was hospitalized at [facility] one year ago following a suicide attempt. The patient denies this report. The patient reports a history of trying numerous psychotropic medications and reports her current medications and doses are working well for her symptoms. The patient currently has a therapist, Amanda Gallegos, and psychiatrist, Dr. Cookie Lawler, from [facility]. The patient reports she plans to see a private psychiatrist in [place] as a commute to her current psychiatrist is too long. The patient reports she is currently seeking a primary care provider. ALLERGIES: No known allergies. CURRENT MEDICATIONS: 1. Tylenol 650 mg p.o. q.4 hours. 2. Abilify 5 mg p.o. daily. 3. Tums 500 mg p.o. three times daily. 4. Klonopin 0.5 mg p.o. four times daily. 5. Cymbalta 60 mg p.o. twice daily. 6. Pepcid 20 mg p.o. twice daily p.r.n. 7. Flonase one spray each naris daily. 8. Maalox syrup 30 mL p.o. q.6 hours p.r.n. 9. Milk of magnesia 30 mL p.o. daily p.r.n. 10. Nicoderm 21 mg transdermal daily. 11. Nicorette 2 mg q.1 hour p.r.n. 12. Zyprexa 5 mg p.o. q.4 hours p.r.n. 13. Afrin nasal spray two sprays each nares twice daily. PAST MEDICAL HISTORY: The patient reports a history of endometriosis, history of tubal ligation and history of having her wisdom teeth removed, and a history of appendectomy. SOCIAL HISTORY: The patient reports she was born in [place] and raised in [place] the majority of her life by both parents. The patient reports she currently resides in [place], [place], with her boyfriend of seven years. The patient describes meeting all her developmental milestones. Reports no history of learning delays or difficulties and describes her sexual orientation as bisexual. The patient reports she is currently in a relationship with her boyfriend and has been in a relationship for seven years. The patient reports no history of being and has no children. The patient reports she currently has part-time employment. The patient reports highest level of education is a bachelor's degree. The patient reports no history of duty and reports anglican or spiritual practice as [employer]. The patient reports no legal history. SUBSTANCE USE HISTORY: Patient reports she does not use alcohol and is currently trying to "cut back on cigarette smoking" and reports she smokes cigarettes one to two a day. The patient reports most recently using marijuana by smoking on Sunday and prior to her admission to the ER the patient reports a history of using edible form of cannabis and describes her typical marijuana use is only on the weekends. The patient reports no other substance abuse history. SUBSTANCE ABUSE BRIEF INTERVENTION: Brief intervention regarding the risks of cannabis abuse is provided to patient with goal to reduce the risk of harm that could result from the continued use of cannabis, with the general aim to investigate the problem, raise awareness of problem, develop a solution with the patient, recommend a specific change or activity, and motivate the patient toward change. Assess substance abuse behavior and give supportive advice about harm reduction, recommend a reduction in hazardous/at-risk consumption patterns, and facilitate referrals for additional specialized treatment with aged or disabled carer. Intermediate goal is for the patient to quit and attend outpatient substance abuse treatment. Intervention focus on intermediate goals to allow for more immediate success in the treatment process to keep the patient motivated. Review following with patient: Cannabis use risks: Short- term use: impaired short-term memory, impaired motor coordination, altered judgement, in high doses paranoia and psychosis. Long-term use addiction, diminished life satisfaction and achievement, symptoms of chronic bronchitis, and increased risk of chronic psychosis disorders if predisposition to such disorders. In withdrawal anger, aggression irritability, anxiety and nervousness, decreased appetite or weight loss, restlessness, and sleep difficulties with strange dreams. OUTPATIENT SUBSTANCE ABUSE TREATMENT: Patient referred to outpatient provider and treatment for continued treatment related to substance abuse. FAMILY PSYCHIATRIC HISTORY: 1. Patient reports family history of mental illness as mother with depression and anxiety. Brother with anxiety. Family history of suicide as younger sister attempted suicide. The patient reports alcohol abuse on both sides of her family. LABORATORY DATA: Admission labs and studies: 1. CBC within normal limits except lymphocytes were elevated at 48.9, absolute lymphocytes were elevated at 3.41. 2. BMP within normal limits except sodium was low at 134, calcium was elevated at 10.7. 3. Beta-hCG qualitative test is negative. 4. Toxicology screen is positive for amphetamine. The patient reports having a prescription for Adderall and was also positive for THC. Patient reports most recent use of marijuana was on 10/20/2018, and also prior to presenting to the emergency room for the current hospitalization. Ethyl alcohol level was 0. MENTAL STATUS EXAM: The patient is a well-nourished female looking stated chronological age. Attire is appropriate. Dress is casual. Grooming status is appropriate. Ambulation is independent. Gait is normal and coordinated. Posture is normal and relaxed. Eye contact is appropriate and adequate. Motor activity is appropriate with purposeful, organized, coordinated movements with no involuntary movements noted. Attitude is cooperative and friendly. The patient appears attentive and relates well to this interviewer. Language production is spontaneous. Rate, rhythm and volume are normal. Articulation is clear. The patient reports mood as "anxious" with congruent affect. The patient's thought process is linear and logical with no loose associations, tangential thought, thought blocking, concrete thinking, or any other signs of formal thought disorder. The patient does not report suicidal or homicidal thoughts, ideas, or plans. The patient denies auditory or visual hallucinations. The patient denies delusions. The patient does not appear to be attending to internal stimuli. The patient is oriented to person, place, time, and situation. The patient's attention and concentration are fair. Patient's insight and judgment are poor. There is no evidence of gross cognitive dysfunction at any point during the interview and no evidence of apparent dysfunction in recent or remote memory noted. The patient does not report undesirable side effects from the current medications. DIAGNOSES: Based on the patient's history and current presentation, the patient 's diagnoses are: 1. Major depressive disorder, recurrent, severe, with anxious distress. 2. Posttraumatic stress disorder. 3. Cannabis use disorder, moderate dependence. 4. Nicotine dependence. 5. Rule out delusional disorder. 6. Rule out cannabis induced psychotic disorder with delusions. FORMULATION: The patient is a 28-year-old female currently in a relationship with her boyfriend of seven years and is currently employed part-time residing with her boyfriend in [place], [place]. The patient presents to the hospital involuntarily and is currently on an M1 hold. The patient requires continued inpatient care because of current psychosis, notably paranoid delusions. The patient presents with problems of ongoing paranoid delusions that have been reported by her boyfriend. The patient denies her thoughts and behaviors as paranoid and denies delusions. The patient has a reported psychiatric history of depression, anxiety, PTSD, and reports her current medications treat her symptoms. The patient did agree to increasing Abilify 2 mg to Abilify 5 mg p.o. daily. The patient continues to deny her thoughts as paranoid and response to current medications for paranoid delusions is poor. The patient is a high safety risk due to current paranoid delusions. Protective factors while hospitalized include ongoing safety checks, active involvement in treatment and support from our treatment team. The patient could benefit from inpatient hospitalization for safety, crisis stabilization, and medication evaluation. PLAN: 1. Medications: After reviewing options, risks and benefits with the patient, the patient agrees to continue current medications listed above. No other medication changes at this time as more time is needed to determine ongoing tolerability and efficacy. Plan is to continue to observe patient for response and side effects from medications, and ongoing monitoring and evaluation. 2. Review with patient informed consent and recommendations for psychotropic medication treatment listed below 3. Labs: no additional labs at this time 4. Therapy: continue milieu and group therapy 5. Further investigation including gathering information from patients relatives and review of past case records to inform treatment plan. 6. Safety/Wellness plan and follow-up outpatient appointments to be established prior to discharge. Next steps are for patient to meet with aged or disabled carer to plan a safe discharge plan and establish outpatient services for ongoing treatment. 7. Confer with inpatient treatment team regarding treatment plan. 8. Address psychosocial stressors by meeting with aged or disabled carer to establish discharge plan including referrals for outpatient services. 9. Legal status: M1 10. Consider discharge this week if patient is in stable condition, safe, and has a safe discharge plan. 11. Substance abuse interventions: cannabis ESTIMATED LENGTH OF STAY: 3-5 days PSYCHOTROPIC MEDICATION TREATMENT INFORMED CONSENT and RECOMMENDATIONS: Review nature of condition, diagnosis, and prognosis. Review nature and purpose of psychotropic medication treatment. Review type of psychotropic medications being ordered. Review risk and benefits of psychotropic medication treatment. Review probable length of time will need to take medications. Review risk and benefits of not undergoing psychotropic medication treatment. Review alternative treatments to psychotropic medications. Review psychotropic medications contraindications, drug-drug interactions, side effects, and importance of reporting any side effects to a psychiatric provider or nurse during inpatient hospitalization, and upon discharge to patients psychiatric outpatient provider, primary care provider, or other health respiratory care instructor. Review importance of asking a nurse, psychiatric provider, or primary care provider any questions or problems concerning the psychotropic medications. Verify patient understands the information that has been provided, and understands, accepts, and agrees to psychotropic medications. Review patients safety plan and importance of patient to communicate to staff while hospitalized if patient is ever a danger to self/others, or unable to care for self, and upon discharge, the importance for patient to contact [facility] or [facility], or go to the nearest emergency room, if patient is ever a danger to self/others, or unable to care for self. Recommend that upon discharge patient establish medication management treatment with a psychiatric provider, establishes routine therapy appointments, and follow-up with primary care provider. Verify patient understands and agrees to these recommendations. /[id number]/MODL MTDD
[2018-10-22] MEDS: FLUTICASONE NASAL 120 SPRAYS/16 GM MDI EACHNARE SCH (13:35)
--- NOTE | 2018-10-22 14:54 | ASMTBHMTP ---
Master Treatment Plan Master Treatment Plan Answers: Impaired Reality for: Date: 10/22/2018 Diagnosis on Admission: Major Depressive Disorder, recurrent, severe with psychotic features 296.34 (F33.3) Expected length of stay: 3-5 Reason for admission: Notes: The patient stated, "Even after AH and paranoia were ruled out, just as I expected, when I returned home 'She's back.' 'She's smoking.' I can wear headphones and work on creative projects but what is most disturbing is that they are listening to me when I'm in the bathroom. They are talking about my bowel movements, when/how I shower, when/how I take my medications. My boyfriend is still not experiencing it. He said 'It is impossible for them to watch me in the bathroom. There is no way they can see me in the shower.' It kept me up all night; 'That's not where I am. You don't know where I am. You're fucking stupid.' I couldn't help it. I know that they've been watching me because she said 'I've never seen her do that when I scrubbed my athlete's foot which means she's been watching. He tried to break up with me because he can't take care of me but I don't him I couldn't talk about it not with an audience. I've just heard so much ridicule. I'm disgusting. I'm not an artist. I don't know what steam punk is. That's not steam punk. Why do I think I know what steam punk is." The patient endorsed using thc to cope and taking her Adderall after not sleeping. Patient's stated presenting problems: Notes: The patient was readmitted to [facility] Inpatient after discharging on 10/18/18. Patient's goals for treatment: Notes: The patient hopes to solve her relationship distress. She agreed to medication adjustments. 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 Identify supports outside of hospital: Notes: The patient is supported outside of the hospital by her boyfriend, peers, and established providers. Discharge criteria: Notes: Psychotic symptoms will be reduced or eliminated with return to baseline functioning in affect, thinking, and behavior prior to discharge. Initial disposition plan/considerations: Notes: The patient will return to her routine and follow up care. Master Treatment Plan Required Signatures Psychiatrist signature: Answers: Psychiatrist: RN on-shift signature: Answers: RN: Patient signature: Answers: Patient: Date Signed: 10/22/2018 02:53 PM Electronically Signed By:Catherine Abdi
[2018-10-22] MEDS: LORYNA PO SCH (16:03)
[2018-10-23] MEDS: clonazePAM 0.5 MG TAB PO SCH ×4 (06:00→21:03)
[2018-10-23] MEDS: CALCIUM CARBONATE 500 MG CHEWABLE TAB PO SCH ×3 (08:15→21:03)
[2018-10-23] MEDS: ARIPiprazole 5 MG TAB PO SCH (08:15)
[2018-10-23] MEDS: DULoxetine 60 MG CAP PO SCH ×2 (08:15→21:04)
[2018-10-23] MEDS: FLUTICASONE NASAL 120 SPRAYS/16 GM MDI EACHNARE SCH (08:16)
[2018-10-23] MEDS: OXYMETAZOLINE 30 ML NASAL SPRAY EACHNARE SCH ×3 (08:16→21:14)
[2018-10-23] MEDS: LORYNA PO SCH (08:17)
--- NOTE | 2018-10-23 08:58 | SOAPPROG ---
SOAP Progress Note Assessment/Plan: Assessment: Major Depressive Disorder, with anxious distress, PTSD, Cannabis Use Disorder, Severe, Nicotine Dependence, R/O Delusional disorder, R/O Cannabis-induced psychosis. No improvement noted. (see subjective/objective note). Patient is not safe to discharge at this time as patient continues to exhibit sign of psychosis notably paranoid delusions. Patient requires continued inpatient care because of current psychosis, and requires inpatient level of care to stabilize in order to no longer be gravely disabled due to mental illness. Patient support system has inability to manage functional impairment at lower level of care. Patient could benefit from continued inpatient hospitalization for crisis stabilization, safety, and medication evaluation. Plan: 1. Psychotropic medications: After reviewing options, risks, and benefits, patient agrees to continue current medications. No medication changes as more time is needed to determine ongoing tolerability and efficacy. Plan is to continue to observe patient for response and side effects from medications, and ongoing monitoring and evaluation. 2. Review with patient informed consent and recommendations for psychotropic medication treatment listed below 3. Labs: no additional labs at this time 4. Therapy: continue milieu and group therapy 5. Further investigation including gathering information from patients relatives and review of past case records to inform treatment plan. 6. Safety/Wellness plan and follow-up outpatient appointments to be established prior to discharge. Next steps are for patient to meet with care program resident to plan a safe discharge plan and establish outpatient services for ongoing treatment. 7. Confer with inpatient treatment team regarding treatment plan. 8. Psychosocial stressors addressed through case filler. 9. Legal status: M1 10. Consider discharge this week if patient is in stable condition, safe, and has a safe discharge plan. PSYCHOTROPIC MEDICATION TREATMENT INFORMED CONSENT and RECOMMENDATIONS: Review nature of condition, diagnosis, and prognosis. Review nature and purpose of psychotropic medication treatment. Review type of psychotropic medications being ordered. Review risk and benefits of psychotropic medication treatment. Review probable length of time patient will need to take medications. Review risk and benefits of not undergoing psychotropic medication treatment. Review alternative treatments to psychotropic medications. Review psychotropic medications contraindications, drug-drug interactions, side effects, and importance of reporting any side effects to a psychiatric provider or nurse during inpatient hospitalization, and upon discharge to patients psychiatric outpatient provider, primary care provider, or other health rn primary care. Review importance of asking a nurse, psychiatric provider, or primary care provider any questions or problems concerning the psychotropic medications. Verify patient understands the information that has been provided, and understands, accepts, and agrees to psychotropic medications. Review patients safety plan and importance of patient to report to staff while hospitalized if patient is ever a danger to self/others, or unable to care for self, and upon discharge, the importance for patient to contact [place] [facility] or [facility], or go to the nearest emergency room, if patient is ever a danger to self/others, or unable to care for self. Recommend that upon discharge patient establish medication management treatment with a psychiatric provider, establishes routine therapy appointments, and follow-up with primary care provider. Verify patient understands and agrees to these recommendations. 10/23/18 09:00 Subjective: Following up with patient for evaluation of psychosis and safety. Patient reports, "I think I figured this out. My neighbor was talked into also getting an evaluation, I heard her when I was in the ER, and then saw her on this unit, in zone two, dancing and singing. She has dark, short hair. I think it is her , she is my neighbor, the one who has been talking about me, and she was convinced to also get an evaluation by her mother, or whomever I have heard her talking to when I'm in my apartment. She is my upstairs neighbor. Patient reports no side effects from current medications, and agrees to continue current medications. Patient reports Klonipin dose was once 3 mg total per day , and she reports her preference is to continue at current dose of 2 mg per day divided into four doses as she is just "way to anxious right now" to lower it. Objective: Vital Signs Temp Pulse Resp BP Pulse Ox 35.6 C L 89 14 101/60 100 10/23/18 06:00 10/23/18 06:00 10/23/18 06:00 10/23/18 06:00 10/23/18 06:00 MSE: The patient is a well-nourished female looking stated chronological age. Attire is appropriate dress is casual. Grooming status is appropriate. Ambulation is independent. Gait is normal and coordinated. Posture is normal and relaxed. Eye contact is appropriate. Motor activity is appropriate with purposeful, organized, coordinated movements; with no involuntary movements. Attitude is cooperative. Patient appears attentive and relates well to this interviewer. Language production is spontaneous. R/R/V normal. Articulation is clear. Patient reports mood as anxious with congruent affect. Patients thought process is non-linear and illogical. Patient does not report suicidal/ homicidal thoughts, ideas, or plans. Patient denies auditory, visual hallucinations. Patient reports paranoid delusions. Patient does not appear to be attending to internal stimuli. Patients attention and concentration are poor. Patient is oriented to person, place, time. Patients insight is poor. Patients judgment is poor. - Time Spent With Patient Time Spent With Patient: 15 minutes, met with patient individually. - Pending Discharge Pending Discharge Within 24 Hours: No Pending Discharge Within 48 Hours: No ICD10 Worksheet Patient Problems: Problems Problem Status Onset Psychosis Acute Post traumatic stress disorder Chronic Cannabis use disorder, moderate, dependence Acute Nicotine dependence Acute Major depressive disorder, recurrent episode, severe with anxious distress Chronic
[2018-10-23] MEDS: NICOTINE 21 MG/24 HR PATCH TD SCH (11:08)
--- NOTE | 2018-10-23 13:20 | ASMTCMCOM ---
CM Note CM Note Notes: Ct. was seen by team during today's round meeting. Ct. presented as very paranoid. Ct. believes that one of the female cts on the unit is the neighbor who was following her. Ct. has very little insight. She reported that her BF is thinking about breaking up with her because he cannot manage her delusions. She was hoping that he will not break up with her if he realizes that what she has been going through is true. Date Signed: 10/23/2018 01:15 PM Electronically Signed By:Krystal Kay
[2018-10-24] MEDS: clonazePAM 0.5 MG TAB PO SCH ×4 (06:00→21:15)
[2018-10-24] MEDS: ARIPiprazole 5 MG TAB PO SCH (08:57)
[2018-10-24] MEDS: CALCIUM CARBONATE 500 MG CHEWABLE TAB PO SCH ×3 (08:57→21:15)
[2018-10-24] MEDS: DULoxetine 60 MG CAP PO SCH ×2 (08:57→21:15)
[2018-10-24] MEDS: LORYNA PO SCH (08:57)
[2018-10-24] MEDS: NICOTINE 21 MG/24 HR PATCH TD SCH (08:58)
--- NOTE | 2018-10-24 09:11 | SOAPPROG ---
SOAP Progress Note Assessment/Plan: Assessment: Major Depressive Disorder, with anxious distress, PTSD, Cannabis Use Disorder, Severe, Nicotine Dependence, R/O Delusional disorder, R/O Cannabis-induced psychosis. No improvement noted. (see subjective/objective note). Patient is not safe to discharge at this time as patient continues to exhibit sign of psychosis notably paranoid delusions. Patient requires continued inpatient care because of current psychosis, and requires inpatient level of care to stabilize in order to no longer be gravely disabled due to mental illness. Patient support system has inability to manage functional impairment at lower level of care. Patient could benefit from continued inpatient hospitalization for crisis stabilization, safety, and medication evaluation. Plan: 1. Psychotropic medications: After reviewing options, risks, and benefits, patient agrees to continue current medications. No medication changes as more time is needed to determine ongoing tolerability and efficacy. Plan is to continue to observe patient for response and side effects from medications, and ongoing monitoring and evaluation. 2. Review with patient informed consent and recommendations for psychotropic medication treatment listed below 3. Labs: no additional labs at this time 4. Therapy: continue milieu and group therapy 5. Further investigation including gathering information from patients relatives and review of past case records to inform treatment plan. 6. Safety/Wellness plan and follow-up outpatient appointments to be established prior to discharge. Next steps are for patient to meet with senior care assistant to plan a safe discharge plan and establish outpatient services for ongoing treatment. 7. Confer with inpatient treatment team regarding treatment plan. 8. Psychosocial stressors addressed through skilled nursing case manager. 9. Legal status: M1, agrees to voluntary hospitalization 10. Consider discharge this week if patient is in stable condition, safe, and has a safe discharge plan. PSYCHOTROPIC MEDICATION TREATMENT INFORMED CONSENT and RECOMMENDATIONS: Review nature of condition, diagnosis, and prognosis. Review nature and purpose of psychotropic medication treatment. Review type of psychotropic medications being ordered. Review risk and benefits of psychotropic medication treatment. Review probable length of time patient will need to take medications. Review risk and benefits of not undergoing psychotropic medication treatment. Review alternative treatments to psychotropic medications. Review psychotropic medications contraindications, drug-drug interactions, side effects, and importance of reporting any side effects to a psychiatric provider or nurse during inpatient hospitalization, and upon discharge to patients psychiatric outpatient provider, primary care provider, or other health adult day care worker. Review importance of asking a nurse, psychiatric provider, or primary care provider any questions or problems concerning the psychotropic medications. Verify patient understands the information that has been provided, and understands, accepts, and agrees to psychotropic medications. Review patients safety plan and importance of patient to report to staff while hospitalized if patient is ever a danger to self/others, or unable to care for self, and upon discharge, the importance for patient to contact [facility] or [facility], or go to the nearest emergency room, if patient is ever a danger to self/others, or unable to care for self. Recommend that upon discharge patient establish medication management treatment with a psychiatric provider, establishes routine therapy appointments, and follow-up with primary care provider. Verify patient understands and agrees to these recommendations. 10/24/18 09:11 Subjective: Following up with patient for evaluation of psychosis and safety. Patient reports, "Doing better. Not feeling as anxious. It's better in my new room, away from the woman in other zone. Think that might be my neighbor. Not sure though. Thought I heard someone that sounded just like my neighbor when I was in the other room. I definitely heard her in the emergency room before coming here. My therapist has told me that hearing these familiar voices may be triggers from PTSD stuff. I don't know. Thought I heard her voice when I was in the other room. She saw me with my own markers and said that it wasn't fair. Similar to my neighbor giving me a hard time. I no longer hear her voice in the room I am in now. I feel comfortable and safe there." Patient reports no side effects from current medications, and agrees to continue current medications. Patient agrees to voluntary hospitalization. Objective: Vital Signs Temp Pulse Resp BP Pulse Ox 36.9 C 68 12 102/63 96 10/24/18 06:00 10/24/18 06:00 10/24/18 06:00 10/24/18 06:00 10/24/18 06:00 MSE: The patient is a well-nourished female looking stated chronological age. Attire is appropriate dress is casual. Grooming status is appropriate. Ambulation is independent. Gait is normal and coordinated. Posture is normal and relaxed. Eye contact is appropriate. Motor activity is appropriate with purposeful, organized, coordinated movements; with no involuntary movements. Attitude is cooperative. Patient appears attentive and relates well to this interviewer. Language production is spontaneous. R/R/V normal. Articulation is clear. Patient reports mood as okay with congruent affect. Patients thought process is linear and fairly logical. Patient does not report suicidal/ homicidal thoughts, ideas, or plans. Patient denies auditory, visual hallucinations. Patient reports paranoid delusions. Patient does not appear to be attending to internal stimuli. Patients attention and concentration are poor. Patient is oriented to person, place, time. Patients insight is poor. Patients judgment is poor. - Time Spent With Patient Time Spent With Patient: 15 minutes, met with patient individually. - Pending Discharge Pending Discharge Within 24 Hours: No Pending Discharge Within 48 Hours: No ICD10 Worksheet Patient Problems: Problems Problem Status Onset Psychosis Acute Post traumatic stress disorder Chronic Cannabis use disorder, moderate, dependence Acute Nicotine dependence Acute Major depressive disorder, recurrent episode, severe with anxious distress Chronic
[2018-10-24] MEDS: OXYMETAZOLINE 30 ML NASAL SPRAY EACHNARE SCH ×2 (09:17→21:15)
[2018-10-24] MEDS: FLUTICASONE NASAL 120 SPRAYS/16 GM MDI EACHNARE SCH ×2 (09:43→12:03)
[2018-10-24] MEDS: MAGNESIUM HYDROXIDE 30 ML UDCUP PO PRN (15:24)
--- NOTE | 2018-10-24 16:01 | ASMTCMCOM ---
CM Note CM Note Notes: This newspaper writer discussed collateral with Amanda Gallegos, the patient's outpatient therapist, including dx, tx update, and discharge plan. The patient titrated from 2mg to 5mg of Abilify with a planned increase the medication if tolerated. The patient expressed ambivalence regarding her mood. She reported that she is struggling with how to have a conversation with her boyfriend about her dx; symptoms. This newspaper writer discussed with the patient the importance of sobriety, sleep, and medication adherence in mitigating paranoia/delusional thinking and maintaining future stability. The patient agreed that she is not "hearing voices." She stated, "It is more like I'm having these thoughts that I can't control." The patient expressed interest in ECT, citing an increase in depressive symptoms over the past few years and trialing multiple medications. Date Signed: 10/24/2018 01:22 PM Electronically Signed By:Catherine Abdi
[2018-10-25] MEDS: clonazePAM 0.5 MG TAB PO SCH ×4 (05:56→21:27)
[2018-10-25] MEDS: ARIPiprazole 5 MG TAB PO SCH (08:46)
[2018-10-25] MEDS: CALCIUM CARBONATE 500 MG CHEWABLE TAB PO SCH ×3 (08:46→21:27)
[2018-10-25] MEDS: DULoxetine 60 MG CAP PO SCH ×2 (08:47→21:27)
[2018-10-25] MEDS ORDERED: ARIPiprazole 5 MG TAB PO ONE (09:00)
[2018-10-25] MEDS: FLUTICASONE NASAL 120 SPRAYS/16 GM MDI EACHNARE SCH (09:08)
[2018-10-25] MEDS: LORYNA PO SCH (09:09)
[2018-10-25] MEDS: NICOTINE 21 MG/24 HR PATCH TD SCH (09:37)
--- NOTE | 2018-10-25 11:19 | SOAPPROG ---
SOAP Progress Note Assessment/Plan: Assessment: Major Depressive Disorder, with anxious distress, PTSD, Cannabis Use Disorder, Severe, Nicotine Dependence, R/O Delusional disorder, R/O Cannabis-induced psychosis. Improvement noted. (see subjective/objective note). Patient could benefit from continued inpatient hospitalization for crisis stabilization, safety, and medication evaluation. Plan: 1. Psychotropic medications: After reviewing options, risks, and benefits, patient agrees to continue current medications. Patient agrees to increase Abilify to 10 mg po QD. Patient requests to restart Remeron and agrees to begin at 15 mg po QHS, patient requests vitamin D, and agrees to vitamin D3 1, 000 mg po QD, patient requests fish oil and agrees to 1,000 mg po QD, patient requests Sudafed and agrees to being 30 mg po Q6HRS PRN. Patient agrees to continued voluntary hospitalization. No other medication changes as more time is needed to determine ongoing tolerability and efficacy. Plan is to continue to observe patient for response and side effects from medications, and ongoing monitoring and evaluation. 2. Review with patient informed consent and recommendations for psychotropic medication treatment listed below 3. Labs: no additional labs at this time 4. Therapy: continue milieu and group therapy 5. Further investigation including gathering information from patients relatives and review of past case records to inform treatment plan. 6. Safety/Wellness plan and follow-up outpatient appointments to be established prior to discharge. Next steps are for patient to meet with care specialist to plan a safe discharge plan and establish outpatient services for ongoing treatment. 7. Confer with inpatient treatment team regarding treatment plan. 8. Psychosocial stressors addressed through case management social worker. 9. Legal status: voluntary 10. Consider discharge this week if patient is in stable condition, safe, and has a safe discharge plan. PSYCHOTROPIC MEDICATION TREATMENT INFORMED CONSENT and RECOMMENDATIONS: Review nature of condition, diagnosis, and prognosis. Review nature and purpose of psychotropic medication treatment. Review type of psychotropic medications being ordered. Review risk and benefits of psychotropic medication treatment. Review probable length of time patient will need to take medications. Review risk and benefits of not undergoing psychotropic medication treatment. Review alternative treatments to psychotropic medications. Review psychotropic medications contraindications, drug-drug interactions, side effects, and importance of reporting any side effects to a psychiatric provider or nurse during inpatient hospitalization, and upon discharge to patients psychiatric outpatient provider, primary care provider, or other health customer care manager. Review importance of asking a nurse, psychiatric provider, or primary care provider any questions or problems concerning the psychotropic medications. Verify patient understands the information that has been provided, and understands, accepts, and agrees to psychotropic medications. Review patients safety plan and importance of patient to report to staff while hospitalized if patient is ever a danger to self/others, or unable to care for self, and upon discharge, the importance for patient to contact [facility] or [facility], or go to the nearest emergency room, if patient is ever a danger to self/others, or unable to care for self. Recommend that upon discharge patient establish medication management treatment with a psychiatric provider, establishes routine therapy appointments, and follow-up with primary care provider. Verify patient understands and agrees to these recommendations. 10/25/18 11:20 Subjective: Following up with patient for evaluation of psychosis and safety. Patient reports, "Doing better. I am not hearing or imaging people talking about me, its more like memories in my mind of this occurring in the past. I am not having those thoughts anymore. I would like to see about ECT. I talked the staff about maybe meeting with Dr. Guerra to discuss this. 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 Patient agrees to increase Abilify to 10 mg po QD. Patient requests to restart Remeron and agrees to begin at 15 mg po QHS, patient requests vitamin D, and agrees to vitamin D3 1,000 mg po QD, patient requests fish oil and agrees to 1,000 mg po QD, patient requests Sudafed and agrees to being 30 mg po Q6HRS PRN. Patient agrees to continued voluntary hospitalization. Objective: Vital Signs Temp Pulse Resp BP Pulse Ox 36.8 C 83 12 113/58 L 98 10/25/18 06:00 10/25/18 06:00 10/25/18 06:00 10/25/18 06:00 10/25/18 06:00 MSE: The patient is a well-nourished female looking stated chronological age. Attire is appropriate dress is casual. Grooming status is appropriate. Ambulation is independent. Gait is normal and coordinated. Posture is normal and relaxed. Eye contact is appropriate. Motor activity is appropriate with purposeful, organized, coordinated movements; with no involuntary movements. Attitude is cooperative. Patient appears attentive and relates well to this interviewer. Language production is spontaneous. R/R/V normal. Articulation is clear. Patient reports mood as okay with congruent affect. Patients thought process is linear and fairly logical. Patient does not report suicidal/ homicidal thoughts, ideas, or plans. Patient denies auditory, visual hallucinations. Patient denies delusions. Patient does not appear to be attending to internal stimuli. Patients attention and concentration are poor. Patient is oriented to person, place, time. Patients insight is poor. Patients judgment is poor. - Time Spent With Patient Time Spent With Patient: 15 minutes, met with patient individually. - Pending Discharge Pending Discharge Within 24 Hours: No Pending Discharge Within 48 Hours: No ICD10 Worksheet Patient Problems: Problems Problem Status Onset Psychosis Acute Post traumatic stress disorder Chronic Cannabis use disorder, moderate, dependence Acute Nicotine dependence Acute Major depressive disorder, recurrent episode, severe with anxious distress Chronic
[2018-10-25] MEDS: PSEUDOEPHEDRINE HCL 30 MG TAB PO PRN (12:45)
[2018-10-25] MEDS: OLANZapine 5 MG TAB PO PRN (16:17)
[2018-10-25] MEDS: MIRTAZAPINE 15 MG TAB PO SCH (21:27)
[2018-10-26] MEDS: clonazePAM 0.5 MG TAB PO SCH ×4 (05:53→21:30)
[2018-10-26] MEDS: CHOLECALCIFEROL VIT D3 1,000 UNITS TAB PO SCH (08:22)
[2018-10-26] MEDS: OMEGA-3 FATTY ACIDS 1,000 MG CAP PO SCH (08:23)
[2018-10-26] MEDS: CALCIUM CARBONATE 500 MG CHEWABLE TAB PO SCH ×3 (08:23→21:30)
[2018-10-26] MEDS: LORYNA PO SCH (08:23)
[2018-10-26] MEDS: ARIPiprazole 5 MG TAB PO SCH (08:23)
[2018-10-26] MEDS: NICOTINE 21 MG/24 HR PATCH TD SCH (08:23)
[2018-10-26] MEDS: DULoxetine 60 MG CAP PO SCH ×2 (08:23→21:30)
[2018-10-26] MEDS: FLUTICASONE NASAL 120 SPRAYS/16 GM MDI EACHNARE SCH (09:32)
[2018-10-26] MEDS: PSEUDOEPHEDRINE HCL 30 MG TAB PO PRN (10:59)
[2018-10-26] MEDS: OLANZapine 5 MG TAB PO PRN (16:09)
--- NOTE | 2018-10-26 17:20 | ASMTCMCOM ---
CM Note CM Note Notes: Pt. reports "feeling some cabin fever". Pt. reports she requested ECT and stated she doesn't want to wait around on the unit to have it. Pt. stated she "can't bear to be here for the weekend and into next week". Pt. reports thinking she will discharge on Sunday, maybe sooner. Pt. stated she feels it would be better to discharge on the weekend, since her boyfriend will be home. Pt. reports feeling safe to return home. Pt. reports she has been "sleeping like crazy", adding she doesn't have her neighbor keeping her up. Pt. reports it is "important to get quality rest". Pt. reports getting enough to eat and attending groups. Pt. reports "I hate going on and off Adderall" adding it makes her "feel very depressed". Pt. reports she is able to schedule her own follow ups if she discharges prior to Sunday. Pt. and CC discussed what pt. will do in the future if she continues to hear people talking about her. Pt. reports hearing voices "can be exaggerated with lack of sleep", pt. reports ruminating on what she hears, and pt. plans to have her psychiatrist sign a form stating she is allowed to have noise-cancelling headphones at work. Pt. denied SI, HI, AVH and paranoia. Pt. presents as alert, mostly calm, slightly excited, good eye contact, groomed, friendly, lacking insight and cooperative. Staff report 11.5 hours and being medication compliant. Weekday CC left messages with pt's providers to schedule follow up appointments. Per MD, pt. will be placed on a M1 hold due to paranoid psychosis. Date Signed: 10/26/2018 05:20 PM Electronically Signed By:Ariadne Villagran
--- NOTE | 2018-10-26 19:43 | SOAPPROG ---
SOAP Progress Note Assessment/Plan: Assessment: 28-year-old female history of major depressive disorder, PTSD, cannabis induced psychotic disorder and delusional disorder, discharged from [facility] psychiatry 3 days ago, returns to the ER with her life partner via private vehicle. In the ER voluntarily. Her boyfriend reports an increase in audio hallucinations. She reports that she believes people are following her and talking about her and that she can hear her neighbors through the robbins, something that her life partner cannot hear. She reports that her neighbors are talking about her and discussing her showering habits and lifestyle habits. WEEKEND PLAN: 10/26/18 19:35 1. Patient still paranoid, but guarded about discussing b/c she wants to leave hospital. Patient has obvious signs of psychosis including paranoid delusions, hearing neighbors talk about her when they aren't present, thinking that her co- workers used to live in her old apartment complex and were harassing her. 2. Patient says she isn't willing to take any new medications, especially not antipsychotic meds, b/c she definitely is "not psychotic" and is not having "hallucinations" even though her boyfriend insists she is psychotic and has been hallucinating and paranoid for months. 3. Unclear if patient's psychosis is caused by her use of THC and Adderall, some underlying psychotic disorder or a feature of her mood disorder. Possible that it is combination of all/some of these. 4. Patient refuses to consider higher dose of Abilify or another antipsychotic. She says she only agreed to increase of Abilify to 10mg to "be nice" and appease PMHNP b/c she thought he would discharge her sooner. 5. Since she wants to leave hospital without any further treatment, will place on M1 d/t grave disability as she is still actively psychotic. Subjective: Patient initially presents as organized and coherent, but quickly becomes disorganized, illogical and paranoid. She initially says "when I hear criticisms , I valery them over to the point of rumination." However, she admits she believes she can hear her neighbors talking about her even when she isn't in their presence. She also admits that her boyfriend believes she is actively hallucinating and feels "hopeless" about her right now b/c she continues to deny she is having psychotic sxs. Patient initially says it's just one neighbor who is critical of her, but later says she believes "a couple of them" are talking about her behind her back. She claims she had similar problem in an old apartment complex in [place] where she used to live. She reported those neighbors to the police. Now she believes that several of her co-workers are actually "from my old apartment" and have been harassing her. Objective: Vital Signs Temp Pulse Resp BP Pulse Ox 36.8 C 77 12 111/56 L 98 10/26/18 06:00 10/26/18 06:00 10/26/18 06:00 10/26/18 06:00 10/26/18 06:00 MSE: Affect: Constricted Mood: "OK" TP: Disorganized, illogical TC: Denies any SI/HI, continues to have paranoid delusions Perception: Denies AH/VH, but reports hearing neighbors voices even when they're not present Insight/Judgment : Poor - Time Spent With Patient Time Spent With Patient: 25" - Pending Discharge Pending Discharge Within 24 Hours: No Pending Discharge Within 48 Hours: No ICD10 Worksheet Patient Problems: Problems Problem Status Onset Psychosis Acute Post traumatic stress disorder Chronic Cannabis use disorder, moderate, dependence Acute Nicotine dependence Acute Major depressive disorder, recurrent episode, severe with anxious distress Chronic
[2018-10-26] MEDS ORDERED: clonazePAM 1 MG TAB PO SCH (21:00)
[2018-10-26] MEDS: MIRTAZAPINE 15 MG TAB PO SCH (21:30)
[2018-10-27] MEDS: CHOLECALCIFEROL VIT D3 1,000 UNITS TAB PO SCH (09:04)
[2018-10-27] MEDS: ARIPiprazole 5 MG TAB PO SCH (09:04)
[2018-10-27] MEDS: OMEGA-3 FATTY ACIDS 1,000 MG CAP PO SCH (09:04)
[2018-10-27] MEDS: CALCIUM CARBONATE 500 MG CHEWABLE TAB PO SCH ×3 (09:05→21:42)
[2018-10-27] MEDS: NICOTINE 21 MG/24 HR PATCH TD SCH (09:05)
[2018-10-27] MEDS: DULoxetine 60 MG CAP PO SCH ×2 (09:05→21:42)
[2018-10-27] MEDS: FLUTICASONE NASAL 120 SPRAYS/16 GM MDI EACHNARE SCH (09:52)
[2018-10-27] MEDS: LORYNA PO SCH (09:52)
[2018-10-27] MEDS: PSEUDOEPHEDRINE HCL 30 MG TAB PO PRN (09:54)
[2018-10-27] MEDS: MAGNESIUM HYDROXIDE 30 ML UDCUP PO PRN (10:30)
[2018-10-27] MEDS: clonazePAM 0.5 MG TAB PO PRN (18:25)
--- NOTE | 2018-10-27 19:35 | SOAPPROG ---
SOAP Progress Note Assessment/Plan: Assessment: 28-year-old female history of major depressive disorder, PTSD, cannabis induced psychotic disorder and delusional disorder, discharged from [facility] psychiatry 3 days ago, returns to the ER with her life partner via private vehicle. In the ER voluntarily. Her boyfriend reports an increase in audio hallucinations. She reports that she believes people are following her and talking about her and that she can hear her neighbors through the robbins, something that her life partner cannot hear. She reports that her neighbors are talking about her and discussing her showering habits and lifestyle habits. WEEKEND PLAN: 10/26/18 19:35 1. Patient still paranoid, but guarded about discussing b/c she wants to leave hospital. Patient has obvious signs of psychosis including paranoid delusions, hearing neighbors talk about her when they aren't present, thinking that her co- workers used to live in her old apartment complex and were harassing her. 2. Patient says she isn't willing to take any new medications, especially not antipsychotic meds, b/c she definitely is "not psychotic" and is not having "hallucinations" even though her boyfriend insists she is psychotic and has been hallucinating and paranoid for months. 3. Unclear if patient's psychosis is caused by her use of THC and Adderall, some underlying psychotic disorder or a feature of her mood disorder. Possible that it is combination of all/some of these. 4. Patient refuses to consider higher dose of Abilify or another antipsychotic. She says she only agreed to increase of Abilify to 10mg to "be nice" and appease PMHNP b/c she thought he would discharge her sooner. 5. Since she wants to leave hospital without any further treatment, will place on M1 d/t grave disability as she is still actively psychotic. 10/27/18 19:31 1. Patient very guarded and won't discuss paranoid sxs or hallucinations with b/c she doesn't want to be kept in hospital involuntarily. 2. Patient declines increased dose of Abilify or trial of another antipsychotic b/c she doesn't believe she is having psychotic sxs. 3. Continue current treatment. 4. M1 expires 10/29/18 Subjective: Patient present in milieu, attending groups and participating in treatment. She slept 11 hrs last night. She c/o constipation for past couple of days. She has tried MOM and prune juice. MD encouraged drinking plenty of fluids and will assess progress tomorrow. Might consider stool softener. Objective: Vital Signs Temp Pulse Resp BP Pulse Ox 37 C 70 14 125/68 H 97 10/27/18 06:00 10/27/18 06:00 10/27/18 06:00 10/27/18 06:00 10/27/18 06:00 MSE: Affect: Euthymic Mood: "OK" TP: Goal-directed TC: Denies any SI/HI, guarded about paranoid thoughts and delusions Insight/Judgment: Poor - Time Spent With Patient Time Spent With Patient: 15" - Pending Discharge Pending Discharge Within 24 Hours: No Pending Discharge Within 48 Hours: No ICD10 Worksheet Patient Problems: Problems Problem Status Onset Psychosis Acute Post traumatic stress disorder Chronic Cannabis use disorder, moderate, dependence Acute Nicotine dependence Acute Major depressive disorder, recurrent episode, severe with anxious distress Chronic
[2018-10-27] MEDS: clonazePAM 0.5 MG TAB PO SCH (21:42)
[2018-10-27] MEDS: MIRTAZAPINE 15 MG TAB PO SCH (21:42)
[2018-10-28 06:58] VITALS: BP 118/69
--- NOTE | 2018-10-28 07:22 | SOAPPROG ---
SOAP Progress Note Assessment/Plan: Assessment: Major Depressive Disorder, with anxious distress, PTSD, Cannabis Use Disorder, Severe, Nicotine Dependence, R/O Delusional disorder, R/O Cannabis-induced psychosis. Improvement noted, patient responding well to and tolerating Abilify (see subjective/objective note). Patient could benefit from continued inpatient hospitalization for crisis stabilization, safety, and medication evaluation. Plan: 1. Psychotropic medications: After reviewing options, risks, and benefits, patient agrees to continue current medications. Patient agrees to increase Abilify 15 mg po QD. Patient agrees to continued voluntary hospitalization. No other medication changes as more time is needed to determine ongoing tolerability and efficacy. Plan is to continue to observe patient for response and side effects from medications, and ongoing monitoring and evaluation. 2. Review with patient informed consent and recommendations for psychotropic medication treatment listed below 3. Labs: no additional labs at this time 4. Therapy: continue milieu and group therapy 5. Further investigation including gathering information from patients relatives and review of past case records to inform treatment plan. 6. Safety/Wellness plan and follow-up outpatient appointments to be established prior to discharge. Next steps are for patient to meet with pediatric acute care unit nurse to plan a safe discharge plan and establish outpatient services for ongoing treatment. 7. Confer with inpatient treatment team regarding treatment plan. 8. Psychosocial stressors addressed through nurse outreach case manager. 9. Legal status: M1 10. Consider discharge this week if patient is in stable condition, safe, and has a safe discharge plan. 11. Substance abuse intervention: cannabis PSYCHOTROPIC MEDICATION TREATMENT INFORMED CONSENT and RECOMMENDATIONS: Review nature of condition, diagnosis, and prognosis. Review nature and purpose of psychotropic medication treatment. Review type of psychotropic medications being ordered. Review risk and benefits of psychotropic medication treatment. Review probable length of time patient will need to take medications. Review risk and benefits of not undergoing psychotropic medication treatment. Review alternative treatments to psychotropic medications. Review psychotropic medications contraindications, drug-drug interactions, side effects, and importance of reporting any side effects to a psychiatric provider or nurse during inpatient hospitalization, and upon discharge to patients psychiatric outpatient provider, primary care provider, or other health healthcare consulting manager. Review importance of asking a nurse, psychiatric provider, or primary care provider any questions or problems concerning the psychotropic medications. Verify patient understands the information that has been provided, and understands, accepts, and agrees to psychotropic medications. Review patients safety plan and importance of patient to report to staff while hospitalized if patient is ever a danger to self/others, or unable to care for self, and upon discharge, the importance for patient to contact [facility] or [facility], or go to the nearest emergency room, if patient is ever a danger to self/others, or unable to care for self. Recommend that upon discharge patient establish medication management treatment with a psychiatric provider, establishes routine therapy appointments, and follow-up with primary care provider. Verify patient understands and agrees to these recommendations. 10/28/18 07:20 Subjective: Following up with patient for evaluation of psychosis and safety. Patient reports, "My boyfriend would like for me to discharge, he no longer thinks I am hallucinating. Can we speak with him today by phone?" Patient reports no side effects from current medications, and agrees to continue current medications. Patient reports she has a new psychiatric provider, and plans to follow up with her after discharge for ongoing medication management. Patient agrees to increase Abilify to 15 mg po QD. Patient agrees to call her boyfriend with this ADVERTISING AGENT today. Objective: Vital Signs Temp Pulse Resp BP Pulse Ox 36.9 C 86 16 118/69 99 10/28/18 06:00 10/28/18 06:00 10/28/18 06:00 10/28/18 06:00 10/28/18 06:00 MD REPORT FROM WEEKEND: psychotic and delusional. Wont allow increase in Abilify or new antipsychotic med. SUBSTANCE ABUSE BRIEF INTERVENTION: Brief intervention regarding the risks of cannabis abuse is provided to patient with goal to reduce the risk of harm that could result from the continued use of cannabis, with the general aim to investigate the problem, raise awareness of problem, develop a solution with the patient, recommend a specific change or activity, and motivate the patient toward change. Assess substance abuse behavior and give supportive advice about harm reduction, recommend a reduction in hazardous/at-risk consumption patterns, and facilitate referrals for additional specialized treatment with medicare specialist. Intermediate goal is for the patient to quit and attend outpatient substance abuse treatment. Intervention focus on intermediate goals to allow for more immediate success in the treatment process to keep the patient motivated. Review following with patient: Cannabis use risks: Short- term use: impaired short-term memory, impaired motor coordination, altered judgement, in high doses paranoia and psychosis. Long-term use addiction, diminished life satisfaction and achievement, symptoms of chronic bronchitis, and increased risk of chronic psychosis disorders if predisposition to such disorders. In withdrawal anger, aggression irritability, anxiety and nervousness, decreased appetite or weight loss, restlessness, and sleep difficulties with strange dreams. OUTPATIENT SUBSTANCE ABUSE TREATMENT: Patient referred to outpatient provider and treatment for continued treatment related to substance abuse. MSE: The patient is a well-nourished female looking stated chronological age. Attire is appropriate dress is casual. Grooming status is appropriate. Ambulation is independent. Gait is normal and coordinated. Posture is normal and relaxed. Eye contact is appropriate. Motor activity is appropriate with purposeful, organized, coordinated movements; with no involuntary movements. Attitude is cooperative. Patient appears attentive and relates well to this interviewer. Language production is spontaneous. R/R/V normal. Articulation is clear. Patient reports mood as okay with congruent affect. Patients thought process is linear and fairly logical. Patient does not report suicidal/ homicidal thoughts, ideas, or plans. Patient denies auditory, visual hallucinations. Patient denies delusions. Patient does not appear to be attending to internal stimuli. Patients attention and concentration are poor. Patient is oriented to person, place, time. Patients insight is poor. Patients judgment is poor. - Time Spent With Patient Time Spent With Patient: 15 minutes, met with patient individually. - Pending Discharge Pending Discharge Within 24 Hours: No Pending Discharge Within 48 Hours: No ICD10 Worksheet Patient Problems: Problems Problem Status Onset Psychosis Acute Cannabis use disorder, moderate, dependence Acute Nicotine dependence Acute Post traumatic stress disorder Chronic Major depressive disorder, recurrent episode, severe with anxious distress Chronic
[2018-10-28] MEDS: NICOTINE 21 MG/24 HR PATCH TD SCH (07:58)
[2018-10-28] MEDS: LORYNA PO SCH (07:59)
[2018-10-28] MEDS: CALCIUM CARBONATE 500 MG CHEWABLE TAB PO SCH ×3 (07:59→21:09)
[2018-10-28] MEDS: OMEGA-3 FATTY ACIDS 1,000 MG CAP PO SCH (07:59)
[2018-10-28] MEDS: ARIPiprazole 5 MG TAB PO SCH (08:01)
[2018-10-28] MEDS: CHOLECALCIFEROL VIT D3 1,000 UNITS TAB PO SCH (08:01)
[2018-10-28] MEDS: DULoxetine 60 MG CAP PO SCH ×2 (08:01→21:09)
[2018-10-28] MEDS: FLUTICASONE NASAL 120 SPRAYS/16 GM MDI EACHNARE SCH (08:02)
[2018-10-28] MEDS: clonazePAM 0.5 MG TAB PO PRN (13:26)
[2018-10-28] MEDS: MAGNESIUM HYDROXIDE 30 ML UDCUP PO PRN (13:26)
--- NOTE | 2018-10-28 14:00 | ASMTCMCOM ---
CM Note CM Note Notes: CC checked in with ct. who reported that she is doing "a lot better". Ct. reported that she doesn't feel like herself because she is not taking Adderall. Ct. reported that Adderall helps her with organization and that without it she feels very disorganized. Dr. Guerra explained that the Adderall maybe interfering with her thought process and make her feel more paranoid. He suggested she tries Strattera instead. Ct. reported that her thoughts seems better and that she hasn't has paranoid thoughts in several days. She was open to med. change. Ct. signed ALVERTO to [facility] and CC left a requesting a follow up appointment. Date Signed: 10/28/2018 01:58 PM Electronically Signed By:Krystal Kay
[2018-10-28] MEDS: ACETAMINOPHEN 325 MG TAB PO PRN (16:14)
[2018-10-28] MEDS: MIRTAZAPINE 15 MG TAB PO SCH (21:09)
[2018-10-28] MEDS: clonazePAM 0.5 MG TAB PO SCH (21:09)
[2018-10-29] MEDS: ACETAMINOPHEN 325 MG TAB PO PRN ×2 (04:18→09:46)
[2018-10-29] MEDS: LORYNA PO SCH (08:28)
[2018-10-29] MEDS: CALCIUM CARBONATE 500 MG CHEWABLE TAB PO SCH (08:29)
[2018-10-29] MEDS: OMEGA-3 FATTY ACIDS 1,000 MG CAP PO SCH (08:30)
[2018-10-29] MEDS: DULoxetine 60 MG CAP PO SCH (08:30)
[2018-10-29] MEDS: CHOLECALCIFEROL VIT D3 1,000 UNITS TAB PO SCH (08:30)
[2018-10-29] MEDS: ARIPiprazole 5 MG TAB PO SCH (08:30)
[2018-10-29] MEDS: NICOTINE 21 MG/24 HR PATCH TD SCH (08:31)
[2018-10-29] MEDS: FLUTICASONE NASAL 120 SPRAYS/16 GM MDI EACHNARE SCH (08:31)
--- NOTE | 2018-10-29 11:01 | ASMTBHDC ---
Notes Note: Notes: CC briefly met with pt. Pt. attended treatment team planning this morning. Pt. reports feeling better, calmer. Pt. reports wanting to work with Dr. Katia Roland, stating her therapist referred her to Dr. Roland. Pt. signed an ALVERTO for Dr. Castillo. Pt. reports wanting to discharge as soon as possible. Pt. reports she wants to order her own Uber to pick her up, verses having staff order a Lyft. Pt. denied SI, HI, AVH and paranoia. Pt. presents as alert, calm, excited to discharge, groomed, good eye contact, polite and cooperative. Staff report pt. sleeping 8 hours and being medication compliant. Pt. has an appointment with prescriber on 10/31/18 at 1:15pm, and with her therapist on 11/01 @ 3pm. Date Signed: 10/29/2018 11:00 AM Electronically Signed By:Ariadne Villagran
--- NOTE | 2018-10-30 18:09 | BDS ---
[f rep st] BEHAVIORAL HEALTH DISCHARGE SUMMARY REASON FOR ADMISSION: Patient is a 28-year-old female known to us from previous admission at our facility from 10/16/2018 to 10/18/2018. She was admitted at that time due to paranoid delusio ns and was discharged to home. She apparently did not continue to take her prescribed medication and also was smoking marijuana and became acutely psychotic again. She presented back to the emergency department with her boyfriend who stated that she was not welcome back home if she remained psychotic . She was readmitted to the behavioral services inpatient unit for stabilization, and a full descrip tion of the events preceding admission can be found in her admission history per Marko Almonte dated 0 10/22/2018. ADMITTING DIAGNOSES: Per Marko Almonte: 1. Major depressive disorder, recurrent, severe, with anxious distress. 2. Posttraumatic stress disorder. 3. Cannabis use disorder, moderate. 4. Nicotine dependence. 5. Rule out delusional disorder. 6. Rule out cannabis-induced psychosis with delusions. ADMITTING PHYSICAL EXAMINATION: Performed by Dr. Beth Smith revealed no acute physical findings. ADMISSION LABORATORY: CBC was normal. Serum chemistry showed sodium low at 134, otherwise normal. Beta hCG was negative. Urine drug screen was positive for amphetamines and marijuana. HOSPITAL COURSE: Patient was admitted to the behavioral health services inpatient unit on an M1 hold . On her previous hospitalization, she was very guarded, even hostile, refused to consider most inte rventions and insisted on discharge. It was felt that she was safe to discharge from the hospital as the intensity of her delusions had decreased, but she demonstrated very little insight. On this occ asion, we met with her within the treatment team meeting and outlined for her our concerns, including the fact that this was a recurrent admission, that it was seriously interfering with her relationshi p with her significant other, and that we believed substance use was worsening it. She was actually amenable to hearing about this and to a trial of Abilify. She was started on Abilify by Marko Almonte , Nurse Practitioner, and it was titrated from 5 to 15 mg during her stay. She was also continued on her previous outpatient medications for depression and anxiety, including clonazepam and Cymbalta. She also had been treated for ADHD in the past and was taking Adderall. I had several discussions wi th her about this, and she described convincing symptoms of inattentive attention deficit disorder. Unfortunately, I told her that because of the recurrent psychosis she was not a candidate currently t o resume psychostimulant treatment. I talked with her about the possibility of Strattera, and she st ated she would follow up as an outpatient for this. Patient's hospitalization was uncomplicated. She gradually improved and was pleasant and interactive throughout her stay. She participated actively in therapies and improved considerably. Her paranoi a decreased, and she demonstrated reasonable insight into the likely influence of the cannabis and am phetamines on those symptoms. She verbalized a desire to avoid those things in the future and to con tinue the Abilify as prescribed so that she could function best and remain in her home. CONDITION AT DISCHARGE: Stable. Her affect was euthymic, stable, and appropriate, and she was demon strating very little paranoia. She was voicing no thoughts of suicide, homicide, or violence. DISCHARGE MEDICATIONS: Abilify 15 mg at h.s., vitamin D3 1000 units daily, clonazepam 0.5 mg at h.s. and 0.5 mg b.i.d., Cymbalta 60 mg b.i.d., Pepcid 20 mg b.i.d., Flonase nasal spray 1 spray daily, Bowman dafed 30 mg q.6 hours as needed. DISCHARGE DIAGNOSES: 1. Delusional disorder, paranoid type, likely exacerbated by cannabis and amphetamine use. 2. Cannabis use disorder, moderate to severe. 3. Attention deficit hyperactivity disorder by history. 4. Posttraumatic stress disorder by history. 5. Major depressive disorder, recurrent, severe. 6. Relationship stress. 7. Recurrent psychotic illness. Recurrent hospitalization. DISPOSITION: Patient left the hospital with her boyfriend to return to their home. FOLLOWUP: With her therapist in the community and Dr. Katia Castillo as scheduled by neurocritical care physician . The patient was given written instructions on dates and times of followup appointments. LEGAL COURSE: Patient was converted to a voluntary status at the expiration of her initial M1 hold. She then demanded discharge several days later and was placed back on an M1 hold after re-evaluation by Dr. Valdovinos. She was then discharged at the expiration of the second M1 hold. CODE STATUS: The patient was full code throughout her stay. PENDING LABS/STUDIES: There were no pending labs or studies at time of discharge. The patient's attitude at time of discharge was positive. The patient was administered alcohol, nicotine, cannabis, and metabolic screenings and was receptive to interventions in regard to cannabis. /[id number]/MODL
== END 2018-10-29 11:20 | disposition home or self-care (01) | DRG 751 ==
LOC: BBEH 10-22 00:25
PROVIDERS: ADMIT Psychiatry & Neurology Psychiatry; ATTEND Psychiatry & Neurology Psychiatry
DX: F33.3 Major depressive disorder, recurrent, severe with psychotic symptoms (principal); T43.506A Underdosing of unspecified antipsychotics and neuroleptics, initial encounter; F12.950 Cannabis use, unspecified with psychotic disorder with delusions; F90.9 Attention-deficit hyperactivity disorder, unspecified type; F43.10 Post-traumatic stress disorder, unspecified; F17.200 Nicotine dependence, unspecified, uncomplicated; K29.70 Gastritis, unspecified, without bleeding; N80.3 Endometriosis of pelvic peritoneum; J31.0 Chronic rhinitis; Z63.8 Other specified problems related to primary support group
CPT/HCPCS: 80305; G0480